=== PATIENT | male | born 1980 | race Caucasian/White ===

== ENCOUNTER 2018-04-16 12:59 | Emergency (ER) | payer SELFPAY ==
[2018-04-16 14:24] LABS: Absolute Lymphocytes (CBC) 2.4 K/uL (0.7-4.9); Absolute Monocytes 0.4 K/uL (0.1-1.3); Absolute Neutrophil 4.9 K/uL (1.8-8.0); Basophils % 0.5 % (0-1.3); Eosinophils % 0.8 % (0-4.4); Hematocrit 45.6 % (39.6-49.0); Lymphocytes % 30.8 % (15.3-44.8); MCH 31.1 pg (27.0-35.0); MCV 90.6 fL (80-100); MPV 8.9 fL (7.6-11.3); Monocytes % 5.7 % (3.3-12.3); RBC Red Blood Cell Count 5.03 M/uL (4.33-5.43)
[2018-04-16 14:41] LABS: ALT/SGPT 23 U/L (12-78); AST/SGOT 33 U/L (15-37); Albumin 3.6 g/dL (3.4-5.0); Alkaline Phosphatase 112 U/L (45-117); Amylase Level 36 U/L (25-115); BUN Blood Urea Nitrogen 8 mg/dL (7-18); Bicarbonate 31 mmol/L (21-32); Bilirubin Direct 0.1 mg/dL (0-0.2); Bilirubin Total 0.4 mg/dL (0.2-1.0); Glucose Level 89 mg/dL (74-106); Lipase 73 U/L (73-393); Potassium 3.8 mmol/L (3.5-5.1); Protein, Total 7.2 g/dL (6.4-8.2); Sodium Level 140 mmol/L (136-145)
--- NOTE | 2018-04-16 16:26 | RAD REPORT ---
EXAM DESCRIPTION: CT - Abdomen Pelvis W Contrast - 04/16/2018 4:10 pm CLINICAL HISTORY: Abdominal pain. Left-sided pain COMPARISON: None. TECHNIQUE: Computed axial tomography of the abdomen and pelvis was obtained. 100 cc Isovue-300 is ad ministered intravenously. Oral contrast was given. All CT scans are performed using dose optimization technique as appropriate and may include automated exposure control or mA/KV adjustment according to patient size. FINDINGS: The liver, spleen, pancreas, adrenals and kidneys appear unremarkable. The appendix is normal caliber. There is no evidence of diverticulitis . The wall of the distal descending and sigmoid colon appears mildly thickened. Small right inguinal hernia is present. A small umbilical hernia is seen. IMPRESSION: Apparent mild thickening of the wall of the distal descending and sigmoid colon may repr esent a mild colitis or be secondary to incomplete distention
[2018-04-16] MEDS ORDERED: METRONIDAZOLE 500mg IVPB 500 MG/100 ML BAG IV ONE (16:54)
--- NOTE | 2018-04-16 17:28 | EDPHYS ---
Physician Documentation [facility] Name: Sanjay Cerda Age: 37 yrs Sex: Male : 1980 Arrival Date: 04/16/2018 Time: 13:01 Bed 23 Private MD: ED Physician Reynaldo Simpson HPI: 04/16 14:00 This 37 yrs old Male presents to ER via Ambulatory with complaints of cp Abdominal Pain. 14:00 The patient presents with abdominal pain in the lower abdomen. Onset: The cp symptoms/episode began/occurred yesterday. Associated signs and symptoms: Pertinent negatives: blood in stools, chest pain, constipation, diarrhea, fever, hematuria, testicular pain, vomiting. Patient reports pain has been intermittent since 2008 and returned yesterday. Historical: - Allergies: 13:03 No Known Allergies; aj - Home Meds: 13:03 None [Active]; aj - PMHx: 13:03 None; aj - PSHx: 13:03 None; aj - Immunization history:: Adult Immunizations unknown. - Social history:: Smoking status: Patient uses tobacco products, smokes one pack cigarettes per day. - Ebola Screening: : Patient negative for fever greater than or equal to 101.5 degrees Fahrenheit, and additional compatible Ebola Virus Disease symptoms Patient denies exposure to infectious person Patient denies travel to an Ebola-affected area in the 21 days before illness onset No symptoms or risks identified at this time. ROS: 14:05 Constitutional: Negative for body aches, chills, fever, poor PO intake. cp 14:05 Eyes: Negative for injury, pain, redness, and discharge. cp 14:05 ENT: Negative for drainage from ear(s), ear pain, sore throat, difficulty swallowing, difficulty handling secretions. 14:05 Cardiovascular: Negative for chest pain, edema, palpitations. 14:05 Respiratory: Negative for cough, shortness of breath, wheezing. 14:05 Abdomen/GI: Positive for abdominal pain, Negative for vomiting, diarrhea, constipation, anorexia, black/tarry stool, rectal bleeding. 14:05 Back: Negative for radiated pain. 14:05 : Negative for urinary symptoms, hematuria, flank pain, testicular pain 14:05 Skin: Negative for cellulitis, rash. 14:05 Neuro: Negative for altered mental status, headache, weakness. 14:05 All other systems are negative. Exam: 14:10 Constitutional: The patient appears in no acute distress, alert, awake, non-toxic, well cp developed, well nourished. 14:10 Head/Face: Normocephalic, atraumatic. cp 14:10 Eyes: Periorbital structures: appear normal, Conjunctiva: normal, no exudate, no injection, Sclera: no appreciated abnormality, Lids and lashes: appear normal, bilaterally. 14:10 ENT: External ear(s): are unremarkable, Nose: is normal, Mouth: is normal, Posterior pharynx: is normal, airway is patent, no erythema, no exudate. 14:10 Neck: ROM/movement: is normal, is supple, without pain, no range of motions limitations, no nuchal rigidity. 14:10 Chest/axilla: Inspection: normal, Palpation: is normal, no crepitus, no tenderness. 14:10 Cardiovascular: Rate: normal, Rhythm: regular. 14:10 Respiratory: the patient does not display signs of respiratory distress, Respirations: normal, no use of accessory muscles, no retractions, no splinting, no tachypnea, labored breathing, is not present, Breath sounds: are clear throughout, no decreased breath sounds, no stridor, no wheezing. 14:10 Abdomen/GI: Inspection: abdomen appears normal, Bowel sounds: active, all quadrants, Palpation: soft, in all quadrants, moderate abdominal tenderness, in the umbilical area and right lower quadrant, rebound tenderness, is not appreciated, involuntary guarding, is not appreciated. 14:10 Back: pain, is absent, ROM is normal. 14:10 Skin: cellulitis, is not appreciated, no rash present. Vital Signs: 13:04 BP 117 / 74; Pulse 70; Resp 14; Temp 97.9; Pulse Ox 98% on R/A; Weight 72.57 kg; Height aj 5 ft. 11 in. (180.34 cm); 14:12 BP 122 / 83; Pulse 58; Resp 17; Pulse Ox 99% on R/A; tw2 14:50 BP 123 / 88; Pulse 60; Resp 17; Pulse Ox 98% on R/A; tw2 15:49 BP 118 / 88; Pulse 60; Resp 17; Pulse Ox 98% on R/A; tw2 16:54 BP 116 / 83; Pulse 59; Resp 17; Pulse Ox 100% on R/A; tw2 17:30 BP 120 / 80; Pulse 72; Resp 17; Pulse Ox 99% on R/A; tw2 17:58 BP 118 / 78; Pulse 77; Resp 19; Pulse Ox 99% on R/A; tw2 13:04 Body Mass Index 22.32 (72.57 kg, 180.34 cm) aj MDM: 13:50 Patient medically screened. cp 14:00 Differential diagnosis: appendicitis, bowel obstruction, diverticulitis, gastritis, GI cp Bleed, Pyelonephritis, Testicular Torsion, Ureterolithiasis, urinary tract infection. 17:26 Data reviewed: vital signs, nurses notes, lab test result(s), radiologic studies, CT cp scan. 17:26 Counseling: I had a detailed discussion with the patient and/or guardian regarding: the cp historical points, exam findings, and any diagnostic results supporting the discharge/admit diagnosis, lab results, radiology results, the need for outpatient follow up, a cold roll catcher, to return to the emergency department if symptoms worsen or persist or if there are any questions or concerns that arise at home. Response to treatment: the patient's symptoms have markedly improved after treatment, and as a result, I will discharge patient. Special discussion: Based on the patient's Hx, exam, and Dx evaluation, there is no indication for emergent surgery or inpatient Tx. It is understood by the patient/guardian that if the Sx's persist or worsen they need to return immediately for re-evaluation. 04/16 13:58 Order name: Amylase, Serum; Complete Time: 16:37 cp 04/16 13:58 Order name: Basic Metabolic Panel; Complete Time: 16:37 cp 04/16 16:37 Interpretation: Reviewed. 04/16 13:58 Order name: CBC with Diff; Complete Time: 16:37 cp 04/16 13:58 Order name: Creatinine for Radiology; Complete Time: 16:37 cp 04/16 13:58 Order name: Hepatic Function; Complete Time: 16:37 cp 04/16 16:37 Interpretation: Normal except: GLOB 3.6; A/G 1.0. cp 04/16 13:58 Order name: Lipase; Complete Time: 16:37 cp 04/16 13:58 Order name: Urine Microscopic Only cp 04/16 13:58 Order name: IV Saline Lock; Complete Time: 14:02 cp 04/16 13:58 Order name: Labs collected and sent; Complete Time: 14:02 cp 04/16 13:58 Order name: Urine Dipstick-Ancillary (obtain specimen); Complete Time: 15:49 cp 04/16 13:58 Order name: CT Abd/Pelvis - W/Contrast: may give oral contrast; Complete Time: 16:37 cp 04/16 15:51 Order name: Urine Dipstick--Ancillary (enter results) eb Administered Medications: 16:52 Drug: metroNIDAZOLE 500 mg Volume: 100 ml; Route: IVPB; Infused Over: 30 mins; Site: rv right antecubital; 17:58 Follow up: Response: No adverse reaction; IV Status: Completed infusion tw2 17:25 Drug: Cipro 500 mg Route: PO; tw2 17:58 Follow up: Response: No adverse reaction tw2 Disposition: 04/16/18 17:27 Discharged to Home. Impression: Colitis. - Condition is Stable. - Discharge Instructions: Colitis. - Prescriptions for Tylenol- Codeine #3 300-30 mg Oral Tablet - take 2 tablets by ORAL route every 6 hours As needed; 20 tablet. Cipro 500 mg Oral Tablet - take 1 tablet by ORAL route every 12 hours for 10 days; 20 tablet. Metronidazole 500 mg Oral Tablet - take 1 tablet by ORAL route every 8 hours; 30 tablet. - Medication Reconciliation Form, Thank You Letter, Antibiotic Education, Prescription Opioid Use, Work release form form. - Follow up: Esvin Xie MD; When: 2 - 3 days; Reason: Recheck today's complaints. - Problem is new. - Symptoms have improved. Addendum: 04/19/2018 07:01 Co-signature as Attending Physician, Reynaldo Simpson MD I agree with the assessment and c peter plan of care. Signatures: Dispatcher [employer] EDFlor Kaufman RN RN aj Anderson, Corey, MD MD cha Page, Corey, PA PA cp Wise, Tara, RN RN tw2 Matt Patricia RN RN rv Corrections: (The following items were deleted from the chart) 04/16 17:59 17:27 04/16/2018 17:27 Discharged to Home. Impression: Colitis. Condition is Stable. tw2 Forms are Work release form, Medication Reconciliation Form, Thank You Letter, Antibiotic Education, Prescription Opioid Use. Follow up: Esvin Xie; When: 2 - 3 days; Reason: Recheck today's complaints. Problem is new. Symptoms have improved. cp
--- NOTE | 2018-04-16 17:28 | ER ---
Nurse's Notes [facility] Name: Sanjay Cerda Age: 37 yrs Sex: Male : 1980 Arrival Date: 04/16/2018 Time: 13:01 Bed 23 Private MD: Diagnosis: Colitis Presentation: 04/16 13:02 Presenting complaint: Patient states: Left side abdominal pain, off and on since 2008. aj This episode started yesterday. Patient also reports nausea. Transition of care: patient was not received from another setting of care. Onset of symptoms was April 15, 2018. Risk Assessment: Do you want to hurt yourself or someone else? Patient reports no desire to harm self or others. Initial Sepsis Screen: Does the patient meet any 2 criteria? No. Patient's initial sepsis screen is negative. Does the patient have a suspected source of infection? No. Patient's initial sepsis screen is negative. Care prior to arrival: None. 13:02 Method Of Arrival: Ambulatory aj 13:02 Acuity: LEIDA 3 aj Triage Assessment: 13:03 General: Appears in no apparent distress. comfortable, Behavior is calm, cooperative, aj appropriate for age. Pain: Complains of pain in left upper quadrant and left lower quadrant Pain currently is 6 out of 10 on a pain scale. Neuro: Level of Consciousness is awake, alert, obeys commands, Oriented to person, place, time, situation, Appropriate for age. Respiratory: Airway is patent Respiratory effort is even, unlabored, Respiratory pattern is regular, symmetrical. GI: Reports lower abdominal pain, upper abdominal pain, nausea. GI: Reports. Derm: Skin is intact, is healthy with good turgor, Skin is pink, warm \T\ dry. normal. Historical: - Allergies: 13:03 No Known Allergies; aj - Home Meds: 13:03 None [Active]; aj - PMHx: 13:03 None; aj - PSHx: 13:03 None; aj - Immunization history:: Adult Immunizations unknown. - Social history:: Smoking status: Patient uses tobacco products, smokes one pack cigarettes per day. - Ebola Screening: : Patient negative for fever greater than or equal to 101.5 degrees Fahrenheit, and additional compatible Ebola Virus Disease symptoms Patient denies exposure to infectious person Patient denies travel to an Ebola-affected area in the 21 days before illness onset No symptoms or risks identified at this time. Screenin:14 Abuse screen: Denies threats or abuse. Nutritional screening: No deficits noted. tw2 Tuberculosis screening: No symptoms or risk factors identified. Fall Risk None identified. Assessment: 14:13 General: Appears in no apparent distress. Behavior is calm, cooperative, appropriate tw2 for age, quiet. Pain: Complains of pain in abdomen. Neuro: Level of Consciousness is awake, alert, obeys commands, Oriented to person, place, time, situation. Cardiovascular: Denies chest pain, shortness of breath, Heart tones S1 S2 Capillary refill < 3 seconds Patient's skin is warm and dry. Respiratory: Airway is patent Respiratory effort is even, unlabored, Respiratory pattern is regular, symmetrical, Breath sounds are clear bilaterally. GI: Abdomen is flat, Bowel sounds present X 4 quads. Abd is soft X 4 quads Reports lower abdominal pain, upper abdominal pain, nausea. : No signs and/or symptoms were reported regarding the genitourinary system. EENT: No signs and/or symptoms were reported regarding the EENT system. Derm: No signs and/or symptoms reported regarding the dermatologic system. Musculoskeletal: Range of motion: intact in all extremities. 14:50 Reassessment: Patient appears in no apparent distress at this time. No changes from tw2 previously documented assessment. Patient and/or family updated on plan of care and expected duration. Pain level reassessed. Patient is alert, oriented x 3, equal unlabored respirations, skin warm/dry/pink. 15:49 Reassessment: Patient appears in no apparent distress at this time. No changes from tw2 previously documented assessment. Patient and/or family updated on plan of care and expected duration. Pain level reassessed. Patient is alert, oriented x 3, equal unlabored respirations, skin warm/dry/pink. 16:55 Reassessment: Patient appears in no apparent distress at this time. No changes from tw2 previously documented assessment. Patient and/or family updated on plan of care and expected duration. Pain level reassessed. Patient is alert, oriented x 3, equal unlabored respirations, skin warm/dry/pink. 17:31 Reassessment: Patient appears in no apparent distress at this time. No changes from tw2 previously documented assessment. Patient and/or family updated on plan of care and expected duration. Pain level reassessed. Patient is alert, oriented x 3, equal unlabored respirations, skin warm/dry/pink. 17:59 Reassessment: Patient appears in no apparent distress at this time. No changes from tw2 previously documented assessment. Patient and/or family updated on plan of care and expected duration. Pain level reassessed. Patient is alert, oriented x 3, equal unlabored respirations, skin warm/dry/pink. Vital Signs: 13:04 BP 117 / 74; Pulse 70; Resp 14; Temp 97.9; Pulse Ox 98% on R/A; Weight 72.57 kg; Height aj 5 ft. 11 in. (180.34 cm); 14:12 BP 122 / 83; Pulse 58; Resp 17; Pulse Ox 99% on R/A; tw2 14:50 BP 123 / 88; Pulse 60; Resp 17; Pulse Ox 98% on R/A; tw2 15:49 BP 118 / 88; Pulse 60; Resp 17; Pulse Ox 98% on R/A; tw2 16:54 BP 116 / 83; Pulse 59; Resp 17; Pulse Ox 100% on R/A; tw2 17:30 BP 120 / 80; Pulse 72; Resp 17; Pulse Ox 99% on R/A; tw2 17:58 BP 118 / 78; Pulse 77; Resp 19; Pulse Ox 99% on R/A; tw2 13:04 Body Mass Index 22.32 (72.57 kg, 180.34 cm) aj ED Course: 13:01 Patient arrived in ED. aj 13:03 Triage completed. aj 13:04 Arm band placed on left wrist. Patient placed in waiting room, Patient notified of wait aj time. 13:45 Bed in low position. Call light in reach. Pulse ox on. NIBP on. tw2 13:50 Reynaldo Vigil PA is PHCP. cp 13:50 Reynaldo Simpson MD is Attending Physician. cp 13:52 Tania Murillo RN is Primary Nurse. tw2 14:03 No provider procedures requiring assistance completed. Inserted saline lock: 20 gauge tw2 in right antecubital area, using aseptic technique. Blood collected. 15:49 Urine Microscopic Only Sent. tw2 16:10 CT Abd/Pelvis - W/Contrast: may give oral contrast In Process Unspecified. EDMS 17:26 Esvin Xie MD is Referral Physician. cp 17:29 Awaiting: completion of IV abx prior to discharge. tw2 17:59 IV discontinued, intact, bleeding controlled, No redness/swelling at site. Pressure tw2 dressing applied. Administered Medications: 16:52 Drug: metroNIDAZOLE 500 mg Volume: 100 ml; Route: IVPB; Infused Over: 30 mins; Site: rv right antecubital; 17:58 Follow up: Response: No adverse reaction; IV Status: Completed infusion tw2 17:25 Drug: Cipro 500 mg Route: PO; tw2 17:58 Follow up: Response: No adverse reaction tw2 Outcome: 17:27 Discharge ordered by MD. cp 17:59 Discharged to home ambulatory. tw2 17:59 Condition: stable 17:59 Discharge instructions given to patient, Instructed on discharge instructions, follow up and referral plans. no drinking with medication, no driving heavy equipment, medication usage, Demonstrated understanding of instructions, follow-up care, medications, Prescriptions given X 3. 17:59 Patient left the ED. tw2 Signatures: Dispatcher [employer] EDFlor Kaufman RN RN Reynaldo Guerra PA PA cp Tania Murillo RN RN tw2 Matt Patricia RN RN rv
[2018-04-16] MEDS ORDERED: CIPROFLOXACIN HCL 500 MG TAB ONE (17:30)
[2018-04-16 17:31] LABS: Urine Blood TRACE (NEG); Urine Glucose NEGATIVE (NEG); Urine Protein NEGATIVE (NEG); Urine Specific Gravity 1.015 (1.005-1.030); Urine pH 7.5 (5.0-7.0)
[2018-04-16 17:59] LABS: Urine Bacteria <20 /HPF (NONE SEEN); Urine RBC <5 /HPF (NONE SEEN)
[2018-04-16 18:00] LABS: Urine Amorphous Sediment TRACE /HPF (NONE SEEN); Urine Culture Reflex Order NOT NEEDED
== END 2018-04-16 17:59 | disposition home or self-care (01) ==
LOC: ER 12:59
DX: K52.9 Noninfective gastroenteritis and colitis, unspecified (principal); F17.210 Nicotine dependence, cigarettes, uncomplicated
CPT/HCPCS: 36415; 74177; 80048; 80076; 81003; 81015; 82150; 83690; 85025; 96365; 99284; Q9967

== ENCOUNTER 2019-02-11 20:56 | Emergency (ER) | payer SELFPAY ==
[2019-02-11] MEDS ORDERED: ONDANSETRON 4 MG/2 ML VIAL ONE (22:11)
[2019-02-11] MEDS ORDERED: MORPHINE 4 MG/ML SYR ONE (22:11)
[2019-02-11] MEDS ORDERED: NA CHLORIDE 0.9% 1,000 ML ONE (22:11)
[2019-02-11] MEDS ORDERED: FAMOTIDINE 20 MG/2 ML VIAL IV ONE (22:11)
[2019-02-11 22:16] LABS: Absolute Lymphocytes (CBC) 2.3 K/uL (0.7-4.9); Basophils % 0.6 % (0-1.3); Hematocrit 49.8 % (39.6-49.0); Lymphocytes % 12.3 % (15.3-44.8); MPV 8.8 fL (7.6-11.3); Monocytes % 7.3 % (3.3-12.3); RBC Red Blood Cell Count 5.57 M/uL (4.33-5.43)
[2019-02-11 22:31] LABS: Albumin 3.5 g/dL (3.4-5.0); Bilirubin Direct 0.2 mg/dL (0-0.2); Bilirubin Total 1.2 mg/dL (0.2-1.0); Potassium 3.9 mmol/L (3.5-5.1); Protein, Total 7.9 g/dL (6.4-8.2)
[2019-02-12 00:01] LABS: Urine Blood 2+ (NEG); Urine Glucose NEGATIVE (NEG); Urine Protein 1+ (NEG)
[2019-02-12 00:02] LABS: Urine Bacteria <20 /HPF (NONE SEEN); Urine Culture Reflex Order NOT NEEDED; Urine Mucus MOD /HPF (NONE SEEN); Urine RBC <5 /HPF (NONE SEEN)
[2019-02-12] MEDS ORDERED: METRONIDAZOLE 500mg IVPB 500 MG/100 ML BAG IV ONE (01:27)
[2019-02-12] MEDS ORDERED: ACETAMINOPHEN 500 MG TAB ONE (01:36)
[2019-02-12] MEDS ORDERED: NA CHLORIDE 0.9% 1,000 ML ONE ×2 (01:38→02:57)
[2019-02-12] MEDS ORDERED: CEFOXITIN/SWI 1gm 1 GM/10 ML SYR ONE (02:05)
[2019-02-12] MEDS ORDERED: FENTANYL CITR 100 MCG/2 ML ONE ×2 (02:17→04:15)
--- NOTE | 2019-02-12 03:22 | ER ---
Nurse's Notes [facility] Name: Sanjay Cerda Age: 38 yrs Sex: Male : 1980 Arrival Date: 02/11/2019 Time: 20:59 Bed 30 Private MD: Diagnosis: Diverticulitis of large intestine with perforation and abscess without bleeding Presentation: 02/11 21:10 Presenting complaint: Significant other states: abdominal pain and vomiting x 2 days. dm5 "feels like I've done a million sit ups" Pt states pain is 12/10. Transition of care: patient was not received from another setting of care. Onset of symptoms was February 09, 2019. Risk Assessment: Do you want to hurt yourself or someone else? Patient reports no desire to harm self or others. Initial Sepsis Screen: Does the patient meet any 2 criteria? No. Patient's initial sepsis screen is negative. Does the patient have a suspected source of infection? No. Patient's initial sepsis screen is negative. Care prior to arrival: None. 21:10 Method Of Arrival: Wheelchair dm5 21:10 Acuity: LEIDA 3 dm5 Triage Assessment: 21:10 General: Appears uncomfortable, Behavior is cooperative, restless. Pain: Complains of dm5 pain in right lower quadrant and left lower quadrant Pain currently is 10 out of 10 on a pain scale. Quality of pain is described as crampy. Neuro: Level of Consciousness is awake, alert, obeys commands, Oriented to person, place, time, situation. Cardiovascular: No deficits noted. Respiratory: No deficits noted. GI: Abdomen is round Reports lower abdominal pain, nausea, vomiting. Derm: Skin is pink, warm \\T\\ dry. Historical: - Allergies: 22:09 No Known Allergies; ca1 - Home Meds: 22:09 None [Active]; ca1 - PMHx: 22:09 None; ca1 - PSHx: 22:09 None; ca1 - Immunization history:: Adult Immunizations not up to date. - Social history:: Smoking status: Patient uses tobacco products, smokes one pack cigarettes per day. - Ebola Screening: : Patient negative for fever greater than or equal to 101.5 degrees Fahrenheit, and additional compatible Ebola Virus Disease symptoms Patient denies exposure to infectious person Patient denies travel to an Ebola-affected area in the 21 days before illness onset No symptoms or risks identified at this time. Screenin:34 Abuse screen: Denies threats or abuse. Denies injuries from another. Nutritional ca1 screening: No deficits noted. Tuberculosis screening: No symptoms or risk factors identified. Fall Risk IV access (20 points). Assessment: 21:34 General: Appears in no apparent distress. uncomfortable, ill, Behavior is calm, ca1 cooperative, appropriate for age. Pain: Complains of pain in abdomen Pain does not radiate. Pain currently is 10 out of 10 on a pain scale. Quality of pain is described as stabbing, Pain began 1 day ago. Is continuous, Aggravated by repositioning. Neuro: Level of Consciousness is awake, alert, obeys commands, Oriented to person, place, time, situation. Cardiovascular: Heart tones S1 S2 present Capillary refill < 3 seconds Patient's skin is warm and dry. Pulses are all present. Edema is absent. Respiratory: Airway is patent Respiratory effort is even, unlabored, Respiratory pattern is regular, symmetrical, Breath sounds are clear bilaterally. GI: Abdomen is flat, non-distended, Bowel sounds present X 4 quads. Abdomen is tender to palpation X 4 quads. Guarding noted X 4 quads. Reports nausea, vomiting, since yesterday. : No deficits noted. No signs and/or symptoms were reported regarding the genitourinary system. EENT: No deficits noted. No signs and/or symptoms were reported regarding the EENT system. Derm: Skin is intact, is healthy with good turgor, Skin is pink, warm \\T\\ dry. Musculoskeletal: Circulation, motion, and sensation intact. Capillary refill < 3 seconds, Range of motion: intact in all extremities. 22:16 Reassessment: Patient appears in no apparent distress at this time. Patient and/or ca1 family updated on plan of care and expected duration. Pain level reassessed. Patient is alert, oriented x 3, equal unlabored respirations, skin warm/dry/pink. Completed Oral contrast. Informed nuclear medicine chief technologist. 23:30 Reassessment: Patient appears in no apparent distress at this time. Patient and/or ca1 family updated on plan of care and expected duration. Pain level reassessed. Patient is alert, oriented x 3, equal unlabored respirations, skin warm/dry/pink. Pending CT with Oral Contrast. 02/12 00:34 Reassessment: Patient appears in no apparent distress at this time. Patient and/or ca1 family updated on plan of care and expected duration. Pain level reassessed. Patient is alert, oriented x 3, equal unlabored respirations, skin warm/dry/pink. Pt back from CT scan. 01:30 General: Appears in no apparent distress. comfortable, Behavior is calm, cooperative, dm5 resting with eye closed.. pt felt warm to the touch when I administered the flagyl. Oral temp 102. Provider notified. New orders received. Blankets removed from patient, pt given a single sheet . Pain: Current management is with Morphine, is pt appears to be in no pain at this time. resting quietly with eye closed. 01:50 Pain: Pain currently is 7 out of 10 on a pain scale. dm5 Vital Signs: 02/11 21:20 BP 144 / 93; Pulse 91; Resp 20; Temp 98.1(O); Pulse Ox 100% ; lt1 21:34 Weight 70.31 kg (R); Height 5 ft. 11 in. (180.34 cm) (R); Pain 10/10; ca1 22:16 BP 112 / 75; Pulse 84; Resp 16 S; Pulse Ox 100% on R/A; ca1 23:30 BP 115 / 72; Pulse 95; Resp 17 S; Pulse Ox 97% on R/A; ca1 02/12 00:35 BP 123 / 86; Pulse 91; Resp 17; Temp 98.9(O); Pulse Ox 100% on R/A; ca1 01:20 Temp 102(O); dm5 01:20 BP 111 / 70; Pulse 92; Resp 18; Pulse Ox 97% on R/A; dm5 02:47 BP 111 / 66; Pulse 89; Resp 17; Temp 99.5(O); Pulse Ox 100% ; Pain 4/10; tl1 02/11 21:34 Body Mass Index 21.62 (70.31 kg, 180.34 cm) ca1 ED Course: 02/11 20:59 Patient arrived in ED. do 21:10 Arm band placed on right wrist. Patient placed in an exam room, on a stretcher. dm5 21:14 Reynaldo Vigil PA is PHCP. cp 21:14 Drew Murdock MD is Attending Physician. cp 21:21 Acob, Stacey, RN is Primary Nurse. ca1 21:22 Triage completed. dm5 21:34 Inserted saline lock: 18 gauge in right antecubital area, using aseptic technique. ca1 Blood collected. 22:11 Patient has correct armband on for positive identification. Placed in gown. Bed in low ca1 position. Call light in reach. Side rails up X 1. Pulse ox on. NIBP on. Warm blanket given. 22:11 No provider procedures requiring assistance completed. ca1 22:18 Oral contrast reported to be complete. eh 02/12 00:27 CT Abd/Pelvis - PO and IV Contrast In Process Unspecified. EDMS 00:[address] moved back from [address]. ca1 01:20 Report received from Stacey Ambrose RN. Noise minimized. Lights dimmed. blanket removed dm5 due to fever, sheet given. 01:27 Report given to NARENDRA Yen. ca1 01:41 Diet: Patient is NPO. dm5 01:45 Adilia Garsia RN is Primary Nurse. dm5 04:06 Patient transferred, IV remains in place. tl1 Administered Medications: 02/11 21:40 Drug: NS 0.9% 1000 ml Route: IV; Rate: 1 bolus; Site: right antecubital; ca1 23:31 Follow up: Urine output 230 ml; Response: No adverse reaction; IV Status: Completed ca1 infusion 21:42 Drug: Zofran 4 mg Route: IVP; Site: right antecubital; ca1 23:33 Follow up: Response: No adverse reaction; Nausea is decreased ca1 21:45 Drug: Pepcid 20 mg Route: IVP; Site: right antecubital; ca1 23:33 Follow up: Response: No adverse reaction; Pain is decreased ca1 21:50 Drug: morphine 4 mg Route: IVP; Site: right antecubital; ca1 23:31 Follow up: Response: No adverse reaction; Pain is decreased ca1 02/12 01:09 Drug: metroNIDAZOLE 500 mg Volume: 100 ml; Route: IVPB; Infused Over: 30 mins; Site: dm5 right antecubital; 01:59 Follow up: IV Status: Completed infusion; IV Intake: 100ml dm5 01:20 Drug: NS 0.9% 1000 ml Route: IV; Rate: 1 bolus; Site: right antecubital; dm5 02:30 Follow up: IV Status: Completed infusion; IV Intake: 1000ml tl1 01:30 Drug: Tylenol 1000 mg Route: PO; dm5 02:48 Follow up: Response: No adverse reaction; Marked relief of symptoms; Temperature is tl1 decreased 01:30 CANCELLED (Duplicate Order): Tylenol 1000 mg PO once dm5 01:30 CANCELLED (Duplicate Order): NS 0.9% 1000 ml IV at 1 bolus Per protocol; 1000 mL bolus dm5 01:50 Drug: Mefoxin 1 grams {Note: given via IV push per pharmacy protocol.} Route: IVPB; dm5 Infused Over: 30 mins; Site: right antecubital; 02:21 Follow up: IV Status: Completed infusion; IV Intake: 10ml dm5 02:05 Drug: fentaNYL (PF) 25 mcg Route: IVP; Site: right antecubital; dm5 02:48 Follow up: Response: No adverse reaction; Marked relief of symptoms; Pain is decreased tl1 02:48 Drug: NS 0.9% 1000 ml Route: IV; Rate: 125 ml/hr; Site: right antecubital; tl1 04:07 Follow up: IV Status: Infusion continued upon transfer tl1 04:05 Drug: fentaNYL (PF) 25 mcg Route: IVP; Infused Over: 2 mins; Site: right antecubital; tl1 04:05 Follow up: Response: No adverse reaction; Medication administered at discharge. tl1 Intake: 01:59 IV: 100ml; Total: 100ml. dm5 02:21 IV: 10ml; Total: 110ml. dm5 02:30 IV: 1000ml; Total: 1110ml. tl1 Output: 02/11 23:31 Urine: 230ml; Total: 230ml. ca1 Outcome: 02/12 03:20 ER care complete, transfer ordered by MD. carrillo 04:06 Transferred by ground EMS to [facility], Transfer form completed. tl1 X-rays sent w/ patient. Note: Report called to Martir Aldridge RN 04:06 Condition: stable 04:06 Instructed on the need for transfer, Demonstrated understanding of instructions, follow-up care. 04:08 Patient left the ED. tl1 Signatures: Dispatcher [employer] Adilia Fulton RN RN dm5 Dwayne Fraire Tonya, RN RN tl1 Reynaldo Vigil PA PA cp Ogletree, Danielle do Acob, Cheryl, RN RN ca1 Chambers, Cait lt1 Corrections: (The following items were deleted from the chart) 02/11 22:11 22:09 70.31 kg Reported; Height 5 ft. 11 in. Reported; BMI: 21.6; Pain 10/10; ca1 ca1 22:13 22:11 Inserted saline lock: 18 gauge in right antecubital area, using aseptic ca1 technique. Blood collected. ca1 02/12 01:27 00:35 BP 123 / 86; Pulse 91bpm; Resp 17bpm; Pulse Ox 100% RA; Temp 98F Oral; ca1 ca1
--- NOTE | 2019-02-12 03:22 | EDPHYS ---
Physician Documentation [facility] Name: Sanjay Cerda Age: 38 yrs Sex: Male : 1980 Arrival Date: 02/11/2019 Time: 20:59 Bed 30 Private MD: ED Physician Drew Murdock HPI: 02/11 21:45 This 38 yrs old Male presents to ER via Wheelchair with complaints of cp Abdominal Pain, Vomiting. 21:45 The patient presents with abdominal pain in the lower abdomen. Onset: The cp symptoms/episode began/occurred 2 day(s) ago. 21:45 The symptoms do not radiate. Associated signs and symptoms: Pertinent positives: nausea cp and vomiting, anorexia, Pertinent negatives: blood in stools, chest pain, constipation, diarrhea, dysuria, testicular pain, vomiting blood. The symptoms are described as constant. Modifying factors: the symptoms are aggravated by movement, pressure. Severity of pain: in the emergency department the pain is actually worse is a 10 / 10. Historical: - Allergies: 22:09 No Known Allergies; ca1 - Home Meds: 22:09 None [Active]; ca1 - PMHx: 22:09 None; ca1 - PSHx: 22:09 None; ca1 - Immunization history:: Adult Immunizations not up to date. - Social history:: Smoking status: Patient uses tobacco products, smokes one pack cigarettes per day. - Ebola Screening: : Patient negative for fever greater than or equal to 101.5 degrees Fahrenheit, and additional compatible Ebola Virus Disease symptoms Patient denies exposure to infectious person Patient denies travel to an Ebola-affected area in the 21 days before illness onset No symptoms or risks identified at this time. ROS: 22:00 Constitutional: Negative for body aches, chills, fever, poor PO intake. cp 22:00 Eyes: Negative for injury, pain, redness, and discharge. cp 22:00 ENT: Negative for drainage from ear(s), ear pain, sore throat, difficulty swallowing, difficulty handling secretions. 22:00 Cardiovascular: Negative for chest pain, edema, palpitations. 22:00 Respiratory: Negative for cough, shortness of breath, wheezing. 22:00 Abdomen/GI: Positive for abdominal pain, nausea and vomiting, anorexia, Negative for diarrhea, constipation, black/tarry stool, rectal pain, rectal bleeding. 22:00 Back: Negative for radiated pain. 22:00 : Negative for urinary symptoms, penile pain, testicular pain 22:00 Skin: Negative for cellulitis, rash. 22:00 Neuro: Negative for altered mental status, headache, weakness. 22:00 All other systems are negative. Exam: 22:05 Constitutional: The patient appears in no acute distress, alert, awake, non-toxic, well cp developed, well nourished, in obvious pain, uncomfortable. 22:05 Head/Face: Normocephalic, atraumatic. cp 22:05 Eyes: Periorbital structures: appear normal, Conjunctiva: normal, no exudate, no injection, Sclera: no appreciated abnormality, Lids and lashes: appear normal, bilaterally. 22:05 ENT: External ear(s): are unremarkable, Nose: is normal, Mouth: Lips: moist, Oral mucosa: pink and intact, moist, Posterior pharynx: is normal, airway is patent, no erythema, no exudate. 22:05 Chest/axilla: Inspection: normal, Palpation: is normal, no crepitus, no tenderness. 22:05 Cardiovascular: Rate: normal, Rhythm: regular, Heart sounds: murmur, not appreciated, rub, not appreciated, gallop, not appreciated, Edema: is not appreciated. 22:05 Respiratory: the patient does not display signs of respiratory distress, Respirations: normal, no use of accessory muscles, no retractions, no splinting, no tachypnea, labored breathing, is not present, Breath sounds: are clear throughout, no decreased breath sounds, no stridor, no wheezing. 22:05 Abdomen/GI: Inspection: distension, that is mild, Bowel sounds: active, all quadrants, Palpation: soft, in all quadrants, severe abdominal tenderness, in the left lower quadrant, rebound tenderness, is not appreciated, voluntary guarding, is elicited in the right lower quadrant and left lower quadrant. 22:05 Back: pain, is absent, ROM is normal. 22:05 Skin: no rash present. 22:05 Neuro: Orientation: to person, place \T\ time. Mentation: is normal, Motor: moves all fours, strength is normal. Vital Signs: 21:20 BP 144 / 93; Pulse 91; Resp 20; Temp 98.1(O); Pulse Ox 100% ; lt1 21:34 Weight 70.31 kg (R); Height 5 ft. 11 in. (180.34 cm) (R); Pain 10/10; ca1 22:16 BP 112 / 75; Pulse 84; Resp 16 S; Pulse Ox 100% on R/A; ca1 23:30 BP 115 / 72; Pulse 95; Resp 17 S; Pulse Ox 97% on R/A; ca1 02/12 00:35 BP 123 / 86; Pulse 91; Resp 17; Temp 98.9(O); Pulse Ox 100% on R/A; ca1 01:20 Temp 102(O); dm5 01:20 BP 111 / 70; Pulse 92; Resp 18; Pulse Ox 97% on R/A; dm5 02:47 BP 111 / 66; Pulse 89; Resp 17; Temp 99.5(O); Pulse Ox 100% ; Pain 4/10; tl1 02/11 21:34 Body Mass Index 21.62 (70.31 kg, 180.34 cm) ca1 MDM: 02/11 21:35 Patient medically screened. cp 22:00 Differential diagnosis: bowel obstruction, diverticulitis, pancreatitis, Testicular cp Torsion, Ureterolithiasis, urinary tract infection. 02/12 00:45 Data reviewed: vital signs, nurses notes, lab test result(s), radiologic studies, CT cp scan, I have discussed the patient's presentation/case with the attending Emergency Department Physician;. 00:45 Response to treatment: the patient's symptoms have markedly improved after treatment. Physician consultation: Simon Ng MD was called at 00:45, was contacted at 00:45, regarding consult, patient's condition, after a discussion of the case, a recommendation for transfer for higher level of care is made, for interventional radiology evaluation. 02/11 21:40 Order name: Basic Metabolic Panel; Complete Time: 23:07 cp 02/11 21:40 Order name: CBC with Diff; Complete Time: 23:07 cp 02/11 23:07 Interpretation: Normal except: WBC 18.8; RBC 5.57; HCT 49.8; MALATHI% 79.8; LYM% 12.3; NEUT cp A 15.0; MNA 1.4. 02/11 21:40 Order name: Creatinine for Radiology; Complete Time: 23:07 cp 02/11 21:40 Order name: Hepatic Function; Complete Time: 23:07 cp 02/11 21:40 Order name: Lipase; Complete Time: 23:07 cp 02/11 21:40 Order name: Urine Microscopic Only; Complete Time: 02:24 cp 02/11 21:40 Order name: CT Abd/Pelvis - PO and IV Contrast cp 02/11 23:43 Order name: Urine Dipstick--Ancillary (enter results); Complete Time: 02:24 mw2 02/12 02:24 Interpretation: Normal except: UKET 1+; UBLD 2+; UPROT 1+. cp 02/11 21:40 Order name: IV Saline Lock; Complete Time: 22:09 cp 02/11 21:40 Order name: Labs collected and sent; Complete Time: 22:09 cp 02/11 21:40 Order name: Urine Dipstick-Ancillary (obtain specimen); Complete Time: 23:42 cp 02/12 01:06 Order name: NPO; Complete Time: 01:28 cp Administered Medications: 02/11 21:40 Drug: NS 0.9% 1000 ml Route: IV; Rate: 1 bolus; Site: right antecubital; ca1 23:31 Follow up: Urine output 230 ml; Response: No adverse reaction; IV Status: Completed ca1 infusion 21:42 Drug: Zofran 4 mg Route: IVP; Site: right antecubital; ca1 23:33 Follow up: Response: No adverse reaction; Nausea is decreased ca1 21:45 Drug: Pepcid 20 mg Route: IVP; Site: right antecubital; ca1 23:33 Follow up: Response: No adverse reaction; Pain is decreased ca1 21:50 Drug: morphine 4 mg Route: IVP; Site: right antecubital; ca1 23:31 Follow up: Response: No adverse reaction; Pain is decreased ca1 02/12 01:09 Drug: metroNIDAZOLE 500 mg Volume: 100 ml; Route: IVPB; Infused Over: 30 mins; Site: dm5 right antecubital; 01:59 Follow up: IV Status: Completed infusion; IV Intake: 100ml dm5 01:20 Drug: NS 0.9% 1000 ml Route: IV; Rate: 1 bolus; Site: right antecubital; dm5 02:30 Follow up: IV Status: Completed infusion; IV Intake: 1000ml tl1 01:30 Drug: Tylenol 1000 mg Route: PO; dm5 02:48 Follow up: Response: No adverse reaction; Marked relief of symptoms; Temperature is tl1 decreased 01:30 CANCELLED (Duplicate Order): Tylenol 1000 mg PO once dm5 01:30 CANCELLED (Duplicate Order): NS 0.9% 1000 ml IV at 1 bolus Per protocol; 1000 mL bolus dm5 01:50 Drug: Mefoxin 1 grams {Note: given via IV push per pharmacy protocol.} Route: IVPB; dm5 Infused Over: 30 mins; Site: right antecubital; 02:21 Follow up: IV Status: Completed infusion; IV Intake: 10ml dm5 02:05 Drug: fentaNYL (PF) 25 mcg Route: IVP; Site: right antecubital; dm5 02:48 Follow up: Response: No adverse reaction; Marked relief of symptoms; Pain is decreased tl1 02:48 Drug: NS 0.9% 1000 ml Route: IV; Rate: 125 ml/hr; Site: right antecubital; tl1 04:07 Follow up: IV Status: Infusion continued upon transfer tl1 04:05 Drug: fentaNYL (PF) 25 mcg Route: IVP; Infused Over: 2 mins; Site: right antecubital; tl1 04:05 Follow up: Response: No adverse reaction; Medication administered at discharge. tl1 Disposition: 02/13 01:31 Co-signature as Attending Physician, Drew Murdock MD. Disposition: 02/12/19 03:20 Transfer ordered to [facility]. Diagnosis is Diverticulitis of large intestine with perforation and abscess without bleeding. - Reason for transfer: Higher level of care. - Accepting physician is DR Gill. - Condition is Stable. - Problem is new. - Symptoms have improved. Signatures: Dispatcher [employer] EDMS Adilia Garsia RN RN dm5 Trudy Andres RN RN tl1 Reynaldo Vigil PA PA cp Starr, Gregory, MD MD Stacey Ambrose RN RN ca1 Corrections: (The following items were deleted from the chart) 02/11 23:07 23:07 Normal except: WBC 18.8; RBC 5.57; HCT 49.8; MALATHI% 79.8; LYM% 12.3; NEUT A 15.0. [facility] 02/12 01:30 01:30 Tylenol 1000 mg PO once ordered. dm5 dm5 01:30 01:30 NS 0.9% 1000 ml IV at 1 bolus Per protocol; 1000 mL bolus ordered. dm5 dm5 04:08 03:20 02/12/2019 03:20 Transfer ordered to [facility]. Diagnosis is tl1 Diverticulitis of large intestine with perforation and abscess without bleeding. Reason for transfer: Higher level of care. Accepting physician is DR Gill. Condition is Stable. Problem is new. Symptoms have improved. cp
--- NOTE | 2019-02-14 13:12 | RAD REPORT ---
EXAM DESCRIPTION: CT ABDOMEN AND PELVIS WITH CONTRAST CLINICAL HISTORY: ABD PAIN COMPARISON: 04/16/2018 TECHNIQUE: CT of the abdomen and pelvis performed following IV administration of iodinated contrast. DLP: 1084.6 mGycm FINDINGS: Lung Bases: The visualized lung bases are clear. Bones: No destructive bone lesions identified. Abdomen: Liver: The liver has normal size and density. No intrahepatic mass or biliary dilatation. Gallbladder: No calcified gallstones. Spleen, Pancreas, and Adrenal Glands: The spleen, pancreas, and adrenal glands are unremarkable. Kidneys: The kidneys have normal size and contour without evidence of solid mass or hydronephrosis. Vasculature: Aortoiliac atherosclerosis. IVC is unremarkable. The portal vein is patent. The proxim al visceral and renal arteries are patent. Stomach: The stomach and duodenum have normal course. Other: No free intraperitoneal air. No free fluid or lymphadenopathy. Pelvis: Bladder: Urinary bladder is unremarkable. Bowel: Scattered diverticula colon. Short segment wall thickening the proximal sigmoid colon with a djacent inflammatory change. There is a well-circumscribed pericolic fluid collection measuring 3.0 x 4.4 cm. Mild dilation of the small bowel without distal decompression likely related to ileus. Appendix: Normal appendix. Pelvis: Prior cholecystectomy. IMPRESSION: 1. Complicated acute diverticulitis of the sigmoid colon. There is a 4.4 cm abscess yaquelin cent to the proximal sigmoid colon. This fluid collection may be amenable to percutaneous drainage. This exam was performed according to our departmental dose-optimization program, which includes autom ated exposure control, adjustment of the mA and/or kV according to patient size and/or use of iterati ve reconstruction technique. Electronically signed by: Lyle Batista 02/12/2019 12:38 AM CDT Due to temporary technical issues with the PACS/Fluency reporting system, reports are being signed by the in house radiologist as a courtesy to ensure prompt reporting. The interpreting radiologist is f bronsonly responsible for the content of the report.
== END 2019-02-12 04:08 | disposition short-term general hospital (02) ==
LOC: ER 20:56
DX: K57.20 Diverticulitis of large intestine with perforation and abscess without bleeding (principal); F17.210 Nicotine dependence, cigarettes, uncomplicated
CPT/HCPCS: 36415; 74177; 80048; 80076; 81003; 81015; 83690; 85025; 96361; 96365; 96375; 99285; J2405; J3010; J7030; Q9967

== ENCOUNTER 2019-02-23 10:34 | Emergency (ER) | payer SELFPAY ==
--- OUTSIDE RECORDS SUMMARY | 2019-02-23 10:38 | XMS REPORT ---
:1980 [facility] Address [address] [place] [address] Care Team Providers Name Role Phone VANESSADAMONELAINA LIU Unavailable Unavailable Problems This patient has no known problems. Allergies, Adverse Reactions, Alerts This patient has no known allergies or adverse reactions. Medications This patient has no known medications. Results Test Description Test Time Test Comments Text Results Atomic Results Result Comments MAGNESIUM 2019-02-15 08:11:00 Test Item Value Reference Range Comments MAGNESIUM (BEAKER) (test xanm=325) 1.8 mg/dL 1.6-2.6 BASIC METABOLIC [id number] 08:11:00 Test Item Value Reference Range Comments SODIUM (BEAKER) (test 143 meq/L 136-145 bgcj=972) POTASSIUM (BEAKER) (test 3.9 meq/L 3.5-5.1 omuy=141) CHLORIDE (BEAKER) (test 108 meq/L 98-107 gyyj=628) CO2 (BEAKER) (test 27 meq/L 22-29 faur=344) BLOOD UREA NITROGEN 7 mg/dL 7-21 (BEAKER) (test kdaw=952) CREATININE (BEAKER) (test 0.75 mg/dL 0.57-1.25 umtb=612) GLUCOSE RANDOM (BEAKER) 80 mg/dL 70-105 (test buhr=269) CALCIUM (BEAKER) (test 8.8 mg/dL 8.4-10.2 cove=612) EGFR (BEAKER) (test 115 mL/min/1.73 sq m ESTIMATED GFR IS NOT uijj=7684) ACCURATE CREATININE CLEARANCE IN PREDICTING GLOMERULAR FILTRATION RATE. ESTIMATED GFR IS NOT APPLICABLE FOR DIALYSIS PATIENTS. CBC W/PLT COUNT & AUTO [id number] 06:40:00 Test Item Value Reference Range Comments WHITE BLOOD CELL COUNT (BEAKER) (test xlhe=943) 6.3 K/ L 3.5-10.5 RED BLOOD CELL COUNT (BEAKER) (test osed=932) 4.53 M/ L 4.63-6.08 HEMOGLOBIN (BEAKER) (test gkaa=736) 13.1 GM/DL 13.7-17.5 HEMATOCRIT (BEAKER) (test rrsv=040) 40.1 % 40.1-51.0 MEAN CORPUSCULAR VOLUME (BEAKER) (test opxc=938) 88.5 fL 79.0-92.2 MEAN CORPUSCULAR HEMOGLOBIN (BEAKER) (test 28.9 pg 25.7-32.2 dkjx=213) MEAN CORPUSCULAR HEMOGLOBIN CONC (BEAKER) (test 32.7 GM/DL 32.3-36.5 eztz=953) RED CELL DISTRIBUTION WIDTH (BEAKER) (test 13.0 % 11.6-14.4 xonu=988) PLATELET COUNT (BEAKER) (test rldi=672) 288 K/CU MM 150-450 MEAN PLATELET VOLUME (BEAKER) (test zrtn=044) 9.9 fL 9.4-12.4 NUCLEATED RED BLOOD CELLS (BEAKER) (test 0 /100 WBC 0-0 uwch=220) NEUTROPHILS RELATIVE PERCENT (BEAKER) (test 55 % dveq=914) LYMPHOCYTES RELATIVE PERCENT (BEAKER) (test 29 % xngw=724) MONOCYTES RELATIVE PERCENT (BEAKER) (test 12 % kqkd=385) EOSINOPHILS RELATIVE PERCENT (BEAKER) (test 3 % wyne=836) BASOPHILS RELATIVE PERCENT (BEAKER) (test 1 % mjjn=539) NEUTROPHILS ABSOLUTE COUNT (BEAKER) (test 3.42 K/ L 1.78-5.38 exwp=633) LYMPHOCYTES ABSOLUTE COUNT (BEAKER) (test 1.83 K/ L 1.32-3.57 tiax=179) MONOCYTES ABSOLUTE COUNT (BEAKER) (test 0.76 K/ L 0.30-0.82 aqkf=124) EOSINOPHILS ABSOLUTE COUNT (BEAKER) (test 0.19 K/ L 0.04-0.54 alts=408) BASOPHILS ABSOLUTE COUNT (BEAKER) (test 0.03 K/ L 0.01-0.08 ijwd=541) IMMATURE GRANULOCYTES-RELATIVE PERCENT (BEAKER) 1 % 0-1 (test nyky=1351) [id number] 06:55:00 Test Item Value Reference Range Comments MAGNESIUM (BEAKER) (test nanm=182) 1.8 mg/dL 1.6-2.6 BASIC METABOLIC [id number] 06:55:00 Test Item Value Reference Range Comments SODIUM (BEAKER) (test 136 meq/L 136-145 ddtp=752) POTASSIUM (BEAKER) (test 3.3 meq/L 3.5-5.1 wmdq=754) CHLORIDE (BEAKER) (test 103 meq/L 98-107 lucn=007) CO2 (BEAKER) (test 22 meq/L 22-29 dsyc=881) BLOOD UREA NITROGEN 9 mg/dL 7-21 (BEAKER) (test lypn=550) CREATININE (BEAKER) (test 0.70 mg/dL 0.57-1.25 zspn=448) GLUCOSE RANDOM (BEAKER) 67 mg/dL 70-105 (test mjdq=731) CALCIUM (BEAKER) (test 8.5 mg/dL 8.4-10.2 nhim=820) EGFR (BEAKER) (test 125 mL/min/1.73 sq m ESTIMATED GFR IS NOT mxxv=1544) ACCURATE CREATININE CLEARANCE IN PREDICTING GLOMERULAR FILTRATION RATE. ESTIMATED GFR IS NOT APPLICABLE FOR DIALYSIS PATIENTS. CBC W/PLT COUNT & AUTO [id number] 05:44:00 Test Item Value Reference Range Comments WHITE BLOOD CELL COUNT (BEAKER) (test kodi=491) 8.7 K/ L 3.5-10.5 RED BLOOD CELL COUNT (BEAKER) (test sdcy=844) 4.40 M/ L 4.63-6.08 HEMOGLOBIN (BEAKER) (test zswl=460) 13.0 GM/DL 13.7-17.5 HEMATOCRIT (BEAKER) (test zpav=328) 39.4 % 40.1-51.0 MEAN CORPUSCULAR VOLUME (BEAKER) (test zqyr=210) 89.5 fL 79.0-92.2 MEAN CORPUSCULAR HEMOGLOBIN (BEAKER) (test 29.5 pg 25.7-32.2 waeq=753) MEAN CORPUSCULAR HEMOGLOBIN CONC (BEAKER) (test 33.0 GM/DL 32.3-36.5 bvny=502) RED CELL DISTRIBUTION WIDTH (BEAKER) (test 12.8 % 11.6-14.4 ngjs=811) PLATELET COUNT (BEAKER) (test kjjh=095) 254 K/CU MM 150-450 MEAN PLATELET VOLUME (BEAKER) (test eini=500) 9.9 fL 9.4-12.4 NUCLEATED RED BLOOD CELLS (BEAKER) (test 0 /100 WBC 0-0 uuji=552) NEUTROPHILS RELATIVE PERCENT (BEAKER) (test 71 % xtlj=209) LYMPHOCYTES RELATIVE PERCENT (BEAKER) (test 17 % hldt=346) MONOCYTES RELATIVE PERCENT (BEAKER) (test 9 % wneu=913) EOSINOPHILS RELATIVE PERCENT (BEAKER) (test 1 % omlf=326) BASOPHILS RELATIVE PERCENT (BEAKER) (test 1 % ltxa=585) NEUTROPHILS ABSOLUTE COUNT (BEAKER) (test 6.22 K/ L 1.78-5.38 hhts=967) LYMPHOCYTES ABSOLUTE COUNT (BEAKER) (test 1.49 K/ L 1.32-3.57 mvln=237) MONOCYTES ABSOLUTE COUNT (BEAKER) (test 0.80 K/ L 0.30-0.82 pkni=552) EOSINOPHILS ABSOLUTE COUNT (BEAKER) (test 0.11 K/ L 0.04-0.54 oneg=648) BASOPHILS ABSOLUTE COUNT (BEAKER) (test 0.04 K/ L 0.01-0.08 qdix=966) IMMATURE GRANULOCYTES-RELATIVE PERCENT (BEAKER) 1 % 0-1 (test smui=3879) [id number] 07:28:00 Test Item Value Reference Range Comments MAGNESIUM (BEAKER) (test wueg=503) 1.7 mg/dL 1.6-2.6 BASIC METABOLIC [id number] 07:28:00 Test Item Value Reference Range Comments SODIUM (BEAKER) (test 137 meq/L 136-145 jptv=994) POTASSIUM (BEAKER) (test 3.9 meq/L 3.5-5.1 lsnw=642) CHLORIDE (BEAKER) (test 102 meq/L 98-107 rffl=200) CO2 (BEAKER) (test 26 meq/L 22-29 kfaj=753) BLOOD UREA NITROGEN 7 mg/dL 7-21 (BEAKER) (test levy=389) CREATININE (BEAKER) (test 0.78 mg/dL 0.57-1.25 bbvb=770) GLUCOSE RANDOM (BEAKER) 71 mg/dL 70-105 (test xwaz=868) CALCIUM (BEAKER) (test 9.1 mg/dL 8.4-10.2 zfmg=880) EGFR (BEAKER) (test 110 mL/min/1.73 sq m ESTIMATED GFR IS NOT qcqj=4541) ACCURATE CREATININE CLEARANCE IN PREDICTING GLOMERULAR FILTRATION RATE. ESTIMATED GFR IS NOT APPLICABLE FOR DIALYSIS PATIENTS. CBC W/PLT COUNT & AUTO [id number] 07:04:00 Test Item Value Reference Range Comments WHITE BLOOD CELL COUNT (BEAKER) (test srgb=049) 16.1 K/ L 3.5-10.5 RED BLOOD CELL COUNT (BEAKER) (test yudn=405) 4.80 M/ L 4.63-6.08 HEMOGLOBIN (BEAKER) (test hifi=118) 14.2 GM/DL 13.7-17.5 HEMATOCRIT (BEAKER) (test vhvr=497) 43.6 % 40.1-51.0 MEAN CORPUSCULAR VOLUME (BEAKER) (test zzqh=997) 90.8 fL 79.0-92.2 MEAN CORPUSCULAR HEMOGLOBIN (BEAKER) (test 29.6 pg 25.7-32.2 rvzj=330) MEAN CORPUSCULAR HEMOGLOBIN CONC (BEAKER) (test 32.6 GM/DL 32.3-36.5 qjqq=561) RED CELL DISTRIBUTION WIDTH (BEAKER) (test 13.1 % 11.6-14.4 gqbb=511) PLATELET COUNT (BEAKER) (test vyjf=073) 244 K/CU MM 150-450 MEAN PLATELET VOLUME (BEAKER) (test bbmo=752) 10.3 fL 9.4-12.4 NUCLEATED RED BLOOD CELLS (BEAKER) (test 0 /100 WBC 0-0 amvb=048) NEUTROPHILS RELATIVE PERCENT (BEAKER) (test 81 % lefn=024) LYMPHOCYTES RELATIVE PERCENT (BEAKER) (test 11 % jizp=651) MONOCYTES RELATIVE PERCENT (BEAKER) (test 7 % kksz=783) EOSINOPHILS RELATIVE PERCENT (BEAKER) (test 0 % zqmg=217) BASOPHILS RELATIVE PERCENT (BEAKER) (test 0 % nhqt=676) NEUTROPHILS ABSOLUTE COUNT (BEAKER) (test 13.06 K/ L 1.78-5.38 opep=983) LYMPHOCYTES ABSOLUTE COUNT (BEAKER) (test 1.74 K/ L 1.32-3.57 qsjl=273) MONOCYTES ABSOLUTE COUNT (BEAKER) (test 1.20 K/ L 0.30-0.82 qulx=114) EOSINOPHILS ABSOLUTE COUNT (BEAKER) (test 0.03 K/ L 0.04-0.54 yssz=199) BASOPHILS ABSOLUTE COUNT (BEAKER) (test 0.04 K/ L 0.01-0.08 hcmi=634) IMMATURE GRANULOCYTES-RELATIVE PERCENT (BEAKER) 0 % 0-1 (test pdfq=4513) CT, DRAINAGE, [id number] 16:25:00Reason for exam:->perisigmoidal abscess in patient with diverticulitisFINAL REPORT CT- guided drainage catheter placement dated 02/12/2019 Name of practitioner performing procedure:Mickey Herrera M.D. Names of visitor services information assistant:None Procedure: Drainage catheter placement into the left lower quadrant abdominal abscess Preprocedure diagnosis:Abdominal abscess Postprocedure diagnosis:Abdominal abscess Specimens removed:3 cc of purulent fluid removed. An 8 Ukrainian drainage catheter placed. Estimated blood loss:None Complication:None Conscious sedation : 1 mg Versed and [address] Mickey Herrera was responsible for the moderate sedation. Total sedation time:20 minutes Anesthesia: 1% Xylocaine local anesthesia. Graft/Implants:None Technique: This exam was performed according to our departmental dose-optimization program, which includes automated exposure control, adjustment of the mA and/or kV according to patient size and/or use of interactive reconstruction technique. After obtained informed consent, CT-guided drainage catheter placement into the left lower quadrant abdominal abscess was performed under usual sterile technique. After placing introducer needle and guidewire, the tract was dilated with a 6 and 8 Ukrainian dilators. An 8 Ukrainian drainage catheter was placed. The drainage catheter was left in place, secured to skin with suture, and connected to bulb suction. Patient tolerated procedure well. Impression: Successful CT-guided drainage catheter placement into the left lower abdominal abscess. Signed: Mickey Herrera MDReport Verified Date/Time:02/12/2019 16:25:23 Reading Location: [address] Body Reading Room CT, [id number] 14:59:00FINAL REPORT ABDOMINAL AND PELVIS CT DATED 02/12/2019 CLINICAL INFORMATION: Abd pain, fever, abscess suspected TECHNIQUE: Axial images of the abdomen and pelvis were obtained from diaphragm to the pubic symphysis with GI contrast. This exam was performed according to our departmental dose-optimization program , which includes automated exposure control, adjustment of the mA and/or kV according to patient size and/or use of interactive reconstruction technique. COMMENT: Liverand spleen are normal in size without focal abnormality. Gallbladder is distended with vicarious excretion. No biliary dilatation is noted. Pancreas and adrenals are unremarkable. Both kidneys are normal in size. No hydronephrosis, hydroureter, urolithiasis is seen. Wall thickening is seen in the segment of the small bowel in the left lower quadrant abdomen. Wall thickening is also noted in the distal descending and proximal sigmoid colon. Inflammatory changes are seen in the distal descending mesocolon and adjacent to a segment of the small bowel. A 2.8 x 4.2 cm air-fluid collection is seen inthe left mid abdomen. Prostate is normal in size. The urinary bladder is contracted. No mass, adenopathy or ascites is present. IMPRESSION: 1. Wall thickening in a segment of the small bowel in the left lower quadrant abdomen and in the distal descending and proximal sigmoid mesocolon.2. Extraluminalair- fluid collection in the left lower quadrant abdomen suggestive of abscess. Signed: Mickey Herrera MDReport Verified Date/Time: 02/12/2019 14:59:46 Reading Location: [facility] [id number] CT Body Reading Room [facility] METABOLIC [id number] 07:13:00 Test Item Value Reference Range Comments SODIUM (BEAKER) (test 137 meq/L 136-145 gccw=237) POTASSIUM (BEAKER) (test 4.2 meq/L 3.5-5.1 lsrv=412) CHLORIDE (BEAKER) (test 105 meq/L 98-107 magk=294) CO2 (BEAKER) (test 27 meq/L 22-29 oniy=498) BLOOD UREA NITROGEN 7 mg/dL 7-21 (BEAKER) (test yvmj=275) CREATININE (BEAKER) (test 0.94 mg/dL 0.57-1.25 uvxn=141) GLUCOSE RANDOM (BEAKER) 90 mg/dL 70-105 (test odqh=645) CALCIUM (BEAKER) (test 8.7 mg/dL 8.4-10.2 qfkq=643) EGFR (BEAKER) (test 89 mL/min/1.73 sq m ESTIMATED GFR IS NOT oslu=7786) ACCURATE CREATININE CLEARANCE IN PREDICTING GLOMERULAR FILTRATION RATE. ESTIMATED GFR IS NOT APPLICABLE FOR DIALYSIS PATIENTS. CBC W/PLT COUNT & AUTO [id number] 07:08:00 Test Item Value Reference Range Comments WHITE BLOOD CELL COUNT (BEAKER) (test yxrl=128) 19.0 K/ L 3.5-10.5 RED BLOOD CELL COUNT (BEAKER) (test tazz=157) 4.92 M/ L 4.63-6.08 HEMOGLOBIN (BEAKER) (test jalp=820) 14.4 GM/DL 13.7-17.5 HEMATOCRIT (BEAKER) (test ebzm=582) 44.6 % 40.1-51.0 MEAN CORPUSCULAR VOLUME (BEAKER) (test hfbk=512) 90.7 fL 79.0-92.2 MEAN CORPUSCULAR HEMOGLOBIN (BEAKER) (test 29.3 pg 25.7-32.2 glap=227) MEAN CORPUSCULAR HEMOGLOBIN CONC (BEAKER) (test 32.3 GM/DL 32.3-36.5 mvge=696) RED CELL DISTRIBUTION WIDTH (BEAKER) (test 13.1 % 11.6-14.4 ozxe=789) PLATELET COUNT (BEAKER) (test umpu=765) 234 K/CU MM 150-450 MEAN PLATELET VOLUME (BEAKER) (test wsjg=099) 9.5 fL 9.4-12.4 NUCLEATED RED BLOOD CELLS (BEAKER) (test 0 /100 WBC 0-0 ftzb=210) NEUTROPHILS RELATIVE PERCENT (BEAKER) (test 80 % mhxd=786) LYMPHOCYTES RELATIVE PERCENT (BEAKER) (test 11 % yacq=576) MONOCYTES RELATIVE PERCENT (BEAKER) (test 8 % hgsk=961) EOSINOPHILS RELATIVE PERCENT (BEAKER) (test 0 % nsax=307) BASOPHILS RELATIVE PERCENT (BEAKER) (test 0 % ptdd=134) NEUTROPHILS ABSOLUTE COUNT (BEAKER) (test 15.13 K/ L 1.78-5.38 imoe=836) LYMPHOCYTES ABSOLUTE COUNT (BEAKER) (test 2.16 K/ L 1.32-3.57 asxm=599) MONOCYTES ABSOLUTE COUNT (BEAKER) (test 1.48 K/ L 0.30-0.82 frzc=517) EOSINOPHILS ABSOLUTE COUNT (BEAKER) (test 0.01 K/ L 0.04-0.54 wgvt=644) BASOPHILS ABSOLUTE COUNT (BEAKER) (test 0.05 K/ L 0.01-0.08 jdxn=730) IMMATURE GRANULOCYTES-RELATIVE PERCENT (BEAKER) 1 % 0-1 (test mncq=3200) PROTHROMBIN [id number] 06:54:00 Test Item Value Reference Range Comments PROTIME (BEAKER) (test hfnj=105) 16.0 seconds 11.9-14.2 INR (BEAKER) (test uncs=485) 1.3 <=5.9 Effective 12/29/2018: PT Reference Range ChangeNew: 11.9-14.2 Previous: 11.7- 14.7RECOMMENDED COUMADIN/WARFARIN INR THERAPY RANGESSTANDARD DOSE: 2.0-3.0 Includes: PROPHYLAXIS for venous thrombosis, systemic embolization; TREATMENT for venous thrombosis and/or pulmonary embolus.HIGH RISK: Target INR is2.5-3.5 for patients wiht mechanical heart valves.
--- OUTSIDE RECORDS SUMMARY | 2019-02-23 10:38 | XMS REPORT | Clinical Summary ---
:1980 Author Organization [facility] Address [address] [place] [address] Care Team Providers Name Role Phone Unavailable Primary Care Provider Unavailable Allergies No Known Allergies Medications Medication Sig Dispensed Refills Start Date End Date Status amoxicillin-clavulan Take 1 tablet 22 tablet 0 02/15/2019 02/26/2019 Active ate (AUGMENTIN) by mouth 875-125 mg per every 12 tablet (twelve) hours for 11 days. metroNIDAZOLE Take 1 tablet 33 tablet 0 02/15/2019 02/26/2019 Active (FLAGYL) 500 MG (500 mg tablet total) by mouth 3 (three) times daily for 11 days. amoxicillin-clavulan Take 1 tablet 22 tablet 0 02/15/2019 02/15/2019 Discontinued ate (AUGMENTIN) by mouth 875-125 mg per every 12 tablet (twelve) hours for 11 days. metroNIDAZOLE Take 1 tablet 33 tablet 0 02/15/2019 02/15/2019 Discontinued (FLAGYL) 500 MG (500 mg tablet total) by mouth 3 (three) times daily for 11 days. Active Problems Problem Noted Date Abscess of abdominal cavity 02/14/2019 Diverticulitis 02/12/2019 Encounters Date Type Specialty Care Team Description 02/12/2019 - Hospital General Internal Lyle Gill Diverticulitis; 02/15/2019 Encounter Hanh Gusman MD Diverticulitis of large intestine with abscess without bleeding Essie Wadsworth MD Nalam, Belgica Naqvi MD 02/12/2019 Travel after 02/22/2018 Social History Tobacco Use Types Packs/Day Years Used Date Never Assessed Sex Assigned at Date Recorded Not on file Job Start Date Occupation Industry Not on file Not on file Not on file Travel History Travel Start Travel End No recent travel history available. Last Filed Vital Signs Vital Sign Reading Time Taken Blood Pressure 107/70 02/15/2019 8:00 AM CDT Pulse 66 02/15/2019 8:00 AM CDT Temperature 36.2 C (97.2 F) 02/15/2019 8:00 AM CDT Respiratory Rate 18 02/15/2019 8:00 AM CDT Oxygen Saturation 97% 02/15/2019 8:00 AM CDT Inhaled Oxygen Concentration - - Weight 70 kg (154 lb 6.4 oz) 02/12/2019 5:25 AM CDT Height 180.3 cm (5' 11") 02/12/2019 5:25 AM CDT Body Mass Index 21.53 02/12/2019 5:25 AM CDT Plan of Treatment Not on file Procedures Procedure Name Priority Date/Time Associated Comments Diagnosis CBC W/PLT COUNT & Routine 02/15/2019 6:16 Results for this AUTO DIFFERENTIAL AM CDT procedure are in the results section. CBC W/PLT COUNT & Routine 02/15/2019 6:16 Results for this AUTO DIFFERENTIAL AM CDT procedure are in the results section. MAGNESIUM Routine 02/15/2019 5:46 Results for this AM CDT procedure are in the results section. BASIC METABOLIC PANEL Routine 02/15/2019 5:46 Results for this (7) AM CDT procedure are in the results section. CBC W/PLT COUNT & Routine 02/14/2019 4:52 Results for this AUTO DIFFERENTIAL AM CDT procedure are in the results section. MAGNESIUM Routine 02/14/2019 4:52 Results for this AM CDT procedure are in the results section. BASIC METABOLIC PANEL Routine 02/14/2019 4:52 Results for this (7) AM CDT procedure are in the results section. CBC W/PLT COUNT & Routine 02/14/2019 4:52 Results for this AUTO DIFFERENTIAL AM CDT procedure are in the results section. CBC W/PLT COUNT & Routine 02/13/2019 4:54 Results for this AUTO DIFFERENTIAL AM CDT procedure are in the results section. MAGNESIUM Routine 02/13/2019 4:54 Results for this AM CDT procedure are in the results section. BASIC METABOLIC PANEL Routine 02/13/2019 4:54 Results for this (7) AM CDT procedure are in the results section. CBC W/PLT COUNT & Routine 02/13/2019 4:54 Results for this AUTO DIFFERENTIAL AM CDT procedure are in the results section. CT DRAINAGE PELVIS TJ 02/12/2019 4:00 Results for this PM CDT procedure are in the results section. CT ABDOMEN/PELVIS STAT 02/12/2019 1:53 Results for this WITHOUT IV CONTRAST PM CDT procedure are in the results section. CBC W/PLT COUNT & Routine 02/12/2019 6:17 Results for this AUTO DIFFERENTIAL AM CDT procedure are in the results section. PROTHROMBIN TIME/INR Routine 02/12/2019 6:17 Results for this AM CDT procedure are in the results section. CBC W/PLT COUNT & Routine 02/12/2019 6:17 Results for this AUTO DIFFERENTIAL AM CDT procedure are in the results section. BASIC METABOLIC PANEL Routine 02/12/2019 6:17 Results for this (7) AM CDT procedure are in the results section. after 02/22/2018 Results CBC with platelet count + automated diff (02/15/2019 6:16 AM CDT)Only the most recent of4 resultswithin the time period is included. WBC 6.3 3.5 - 10.5 K/L [facility] RBC 4.53 (L) 4.63 - 6.08 M/L [facility] Hemoglobin 13.1 (L) 13.7 - 17.5 GM/DL [facility] Hematocrit 40.1 40.1 - 51.0 % [facility] MCV 88.5 79.0 - 92.2 fL [facility] MCH 28.9 25.7 - 32.2 pg [facility] MCHC 32.7 32.3 - 36.5 GM/DL [facility] RDW 13.0 11.6 - 14.4 % [facility] Platelets 288 150 - 450 K/CU MM [facility] MPV 9.9 9.4 - 12.4 fL [facility] nRBC 0 0 - 0 /100 WBC [facility] % Neutros 55 % [facility] % Lymphs 29 % [facility] % Monos 12 % [facility] % Eos 3 % [facility] % Baso 1 % [facility] # Neutros 3.42 1.78 - 5.38 K/L [facility] # Lymphs 1.83 1.32 - 3.57 K/L [facility] # Monos 0.76 0.30 - 0.82 K/L [facility] # Eos 0.19 0.04 - 0.54 K/L [facility] # Baso 0.03 0.01 - 0.08 K/L [facility] Immature Granulocytes-Relative 1 0 - 1 % [facility] Specimen Blood Performing Organization Address City/State/Zipcode Phone Number [address] [address] [phone] CENTER Magnesium (02/15/2019 5:46 AM CDT)Only the most recent of3 resultswithin the time period is included. Magnesium 1.8 1.6 - 2.6 mg/dL [facility] Specimen Blood Performing Organization Address City/State/Zipcode Phone Number [address] [address] [place] Basic Metabolic Panel (02/15/2019 5:46 AM CDT)Only the most recent of4 resultswithin the time period is included. Sodium 143 136 - 145 meq/L [facility] Potassium 3.9 3.5 - 5.1 meq/L [facility] Chloride 108 (H) 98 - 107 meq/L [facility] CO2 27 22 - 29 meq/L [facility] BUN 7 7 - 21 mg/dL [facility] Creatinine 0.75 0.57 - 1.25 mg/dL [facility] Glucose 80 70 - 105 mg/dL [facility] Calcium 8.8 8.4 - 10.2 mg/dL [facility] EGFR 115Comment: ESTIMATED GFR IS mL/min/1.73 sq m [facility] NOT ACCURATE [facility] CLEARANCE IN PREDICTING GLOMERULAR FILTRATION RATE. ESTIMATED GFR IS NOT APPLICABLE FOR DIALYSIS PATIENTS. Specimen Blood Performing Organization Address City/State/Zipcode Phone Number [facility] [address] [place] [address] drainage pelvis (02/12/2019 4:00 PM CDT) Specimen Narrative Performed At FINAL REPORT [facility] CT-guided drainage catheter placement dated 02/12/2019 Name of practitioner performing procedure: Mickey Herrera M.D. Names of client services assistant: None Procedure: Drainage catheter placement into the left lower quadrant abdominal abscess Preprocedure diagnosis: Abdominal abscess Postprocedure diagnosis: Abdominal abscess Specimens removed: 3 cc of purulent fluid removed. An 8 Scottish drainage catheter placed. Estimated blood loss: None Complication: None Conscious sedation: 1 mg Versed and [address] Mickey Herrera was responsible for the moderate sedation. Total sedation time: 20 minutes Anesthesia: 1% Xylocaine local anesthesia. Graft/Implants: None Technique: This exam was performed according to [...] was dilated with a 6 and 8 Scottish dilators. An 8 Scottish drainage catheter was placed. The drainage catheter was left in place, secured to skin with suture, and connected to bulb suction. Patient tolerated procedure well. Impression: Successful CT-guided drainage catheter placement into the left lower abdominal abscess. Signed: Mickey Herrera MD Report Verified Date/Time:02/12/2019 16:25:23 Reading Location: [facility] B1 C013Y CT Body Reading Room Procedure Note Interface, External Ris In - 02/12/2019 4:27 PM CDT FINAL REPORT CT-guided drainage catheter placement dated 02/12/2019 Name of practitioner performing procedure: Mickey Herrera M.D. Names of client services assistant: None Procedure: Drainage catheter placement into the left lower quadrant abdominal abscess Preprocedure diagnosis: Abdominal abscess Postprocedure diagnosis: Abdominal abscess Specimens removed: 3 cc of purulent fluid removed. An 8 Scottish drainage catheter placed. Estimated blood loss: None Complication: None Conscious sedation: 1 mg Versed and [address] Mickey Herrera was responsible for the moderate sedation. Total sedation time: 20 minutes Anesthesia: 1% Xylocaine local anesthesia. Graft/Implants: None Technique: This exam was performed according to [...] was dilated with a 6 and 8 Scottish dilators. An 8 Scottish drainage catheter was placed. The drainage catheter was left in place, secured to skin with suture, and connected to bulb suction. Patient tolerated procedure well. Impression: Successful CT-guided drainage catheter placement into the left lower abdominal abscess. Signed: Mickey Herrera MD Report Verified Date/Time: 02/12/2019 16:25:23 Reading Location: [facility] B1 C013Y CT Body Reading Room Performing Organization Address City/State/Zipcode Phone Number [facility] CT abdomen/pelvis without iv contrast (02/12/2019 1:53 PM CDT) Specimen Narrative Performed At FINAL REPORT [facility] ABDOMINAL AND PELVIS CT DATED 02/12/2019 CLINICAL INFORMATION:Abd pain, fever, abscess suspected TECHNIQUE:Axial images of the abdomen and pelvis were obtained from diaphragm to the pubic symphysis with GI contrast. This exam was performed according to our departmental dose-optimization program, which includes automated exposure control, adjustment of the mA and/or kV according to patient size and/or use of interactive reconstruction technique. COMMENT: Liver and spleen are normal in size without focal abnormality.Gallbladder is distended with vicarious excretion. No biliary [...] x 4.2 cm air-fluid collection is seen in the left mid abdomen. Prostate is normal in size. The urinary bladder is contracted. No mass, adenopathy or ascites is present. IMPRESSION: 1. Wall thickening in a segment of the small bowel in the left lower quadrant abdomen and in the distal descending and proximal sigmoid mesocolon. 2. Extraluminal air-fluid collection in the left lower quadrant abdomen suggestive of abscess. Signed: Mickey Herrera MD Report Verified Date/Time:02/12/2019 14:59:46 Reading Location: [facility] C013Y CT Body Reading Room Procedure Note Interface, External Ris In - 02/12/2019 3:02 PM CDT FINAL REPORT ABDOMINAL AND PELVIS CT DATED 02/12/2019 [...] and/or use of interactive reconstruction technique. COMMENT: Liver and spleen are normal in size without focal [...] x 4.2 cm air-fluid collection is seen in the left mid abdomen. Prostate is normal in size. The urinary bladder is contracted. No mass, adenopathy or ascites is present. IMPRESSION: 1. Wall thickening in a segment of the small bowel in the left lower quadrant abdomen and in the distal descending and proximal sigmoid mesocolon. 2. Extraluminal air-fluid collection in the left lower quadrant abdomen suggestive of abscess. Signed: Mickey Herrera MD Report Verified Date/Time: 02/12/2019 14:59:46 Reading Location: [facility] B1 C013Y CT Body Reading Room Performing Organization Address City/State/Zipcode Phone Number GE RIS Prothrombin time/INR (02/12/2019 6:17 AM CDT) Protime 16.0 (H) 11.9 - 14.2 seconds [facility] INR 1.3 <=5.9 [facility] Specimen Blood Narrative Performed At Effective 12/29/2018: PT Reference Range [facility] Change New: 11.9-14.2Previous: 11.7-14.7 RECOMMENDED COUMADIN/WARFARIN INR THERAPY RANGES STANDARD DOSE: 2.0-3.0Includes: PROPHYLAXIS for venous thrombosis, systemic embolization; TREATMENT for venous thrombosis and/or pulmonary embolus. HIGH RISK: Target INR is 2.5-3.5 for patients wiht mechanical heart valves. Performing Organization Address City/State/Zipcode Phone Number [facility] [place] [phone] [place] [address] CENTER after 02/22/2018 Advance Directives For more information, please contact:[address] [phone] Code Status Date Activated Date Inactivated Comments Full Code 02/12/2019 5:35 AM 02/15/2019 12:35 PM This code status was determined by: Patient
--- NOTE | 2019-02-23 12:39 | RAD REPORT ---
EXAM DESCRIPTION: CT - Abdomen Pelvis W Contrast - 02/23/2019 12:16 pm CLINICAL HISTORY: Abdominal pain Patient details history of self removal of an abdominal drain tube COMPARISON: CT study February 11, 2019 TECHNIQUE: Biphasic, helical CT imaging of the abdomen and pelvis was performed following 100 ml non -ionic IV contrast. No oral contrast administered. All CT scans are performed using dose optimization technique as appropriate and may include automated exposure control or mA/KV adjustment according to patient size. FINDINGS: No suspicious findings in the lung bases. The liver, spleen, and pancreas show no suspicious findings. Gallbladder is contracted. No suspicion for acute gallbladder process. No biliary tree dilatation. Symmetric renal function is seen with no hydronephrosis or suspicious renal mass. No pyelonephritis o r acute parenchymal process. No bladder abnormalities. No adrenal abnormalities. No gastric dilatation gastric wall thickening. No dilated small bowel loops. No dilated colon. There is moderate stool volume throughout the colon. A pigtail drainage catheter is in place in the left mid abdomen. This was the site of a 4 centimeter or larger abscess collection seen on the February 12 study. There is a small remnant collection 1.9 x 1.8 cm in size. The pigtail is along the lateral margin of this collection. Medial margin of this collec tion show soft tissue that extends towards the small bowel loops. No communication with the colon see n. Patient has little if any diverticulosis. The appearance of the collection and proximity to small bowel raises a question that the original inj ury and source for the abscess was small bowel rather than diverticulitis. No oral contrast was admin istered. No evaluation can be made of leakage of small bowel content. There is no free air or free fl uid present. No other collections seen. No mass or bulky lymphadenopathy. Fat extends into the origin of the right inguinal canal. No suspicious bony findings. IMPRESSION: A pigtail drainage catheter is in place. Pigtail is still present within the peritoneal cavity. Drainage catheter was placed within a 4- 5 centimeter abscess in the left mid abdomen detailed on the February 12 study. A remnant 19 millimeter x 18 millimeter collection remains. The pigtail is at the lat eral margin of this collection. The very extensive edematous/ inflammatory stranding seen in the peritoneal fat has resolved. There is soft tissue along the medial margin of the remnant collection that tracks to the small bowel rather than the colon. This raises the possibility that the original injury was related to a small b owel perforation rather than diverticulitis. Currently no active infectious/ inflammatory stranding is seen in the peritoneal fat and there is no free air, free fluid or new abscess collection.
--- NOTE | 2019-02-23 13:21 | ER ---
Nurse's Notes [facility] Name: Sanjay Cerda Age: 38 yrs Sex: Male : 1980 Arrival Date: 02/23/2019 Time: 10:36 Bed 5 Private MD: None, None Diagnosis: Encounter for change or removal of drains Presentation: 02/23 10:49 Presenting complaint: Presenting complaint: Patient states: "I had fluid in my abdomen hb so they put in this drain, today the tubing got pulled out some, it is supposed to come out today anyway." Pt does not recall hospital where drain was placed. 10:50 Transition of care: patient was not received from another setting of care. Onset of hb symptoms was February 23, 2019. Risk Assessment: Do you want to hurt yourself or someone else? Patient reports no desire to harm self or others. Care prior to arrival: None. 10:50 Method Of Arrival: Ambulatory hb 10:50 Acuity: LEIDA 3 hb 11:09 Initial Sepsis Screen: Does the patient meet any 2 criteria? No. Patient's initial hj sepsis screen is negative. Does the patient have a suspected source of infection? No. Patient's initial sepsis screen is negative. Triage Assessment: 11:08 General: Appears in no apparent distress. uncomfortable, Behavior is calm, cooperative, hj appropriate for age. Pain: Complains of pain in abdomen. Historical: - Allergies: 10:52 No Known Allergies; hb - PSHx: 10:52 None; hb - Immunization history:: Adult Immunizations up to date. - Social history:: Smoking status: Patient uses tobacco products, smokes one pack cigarettes per day. - Ebola Screening: : No symptoms or risks identified at this time. Screenin:08 Abuse screen: Denies threats or abuse. Denies injuries from another. Nutritional hj screening: No deficits noted. Tuberculosis screening: No symptoms or risk factors identified. Fall Risk None identified. Assessment: 10:52 General: Appears in no apparent distress. uncomfortable, Behavior is calm, cooperative, hj appropriate for age. Pain: Complains of pain in abdomen. Neuro: Level of Consciousness is awake, alert, obeys commands, Oriented to person, place, time, situation, Appropriate for age. Cardiovascular: Capillary refill < 3 seconds Patient's skin is warm and dry. Respiratory: Airway is patent Respiratory effort is even, unlabored, Respiratory pattern is regular, symmetrical, GI: No signs and/or symptoms were reported involving the gastrointestinal system. : No signs and/or symptoms were reported regarding the genitourinary system. EENT: No signs and/or symptoms were reported regarding the EENT system. Derm: No signs and/or symptoms reported regarding the dermatologic system. Musculoskeletal: No signs and/or symptoms reported regarding the musculoskeletal system. 11:30 Reassessment: Patient and/or family updated on plan of care and expected duration. Pain hj level reassessed. Patient is alert, oriented x 3, equal unlabored respirations, skin warm/dry/pink. awaiting lab result and CT;. 12:17 Reassessment: Patient and/or family updated on plan of care and expected duration. Pain hj level reassessed. Patient is alert, oriented x 3, equal unlabored respirations, skin warm/dry/pink. awaiting POC;. Vital Signs: 10:51 BP 114 / 76; Pulse 94; Resp 16; Temp 97.1; Pulse Ox 100% on R/A; Weight 70.31 kg; hb Height 5 ft. 11 in. (180.34 cm); Pain 0/10; 12:18 BP 112 / 75; Pulse 90; Resp 18; Pulse Ox 100% on R/A; hj 13:36 BP 114 / 70; Pulse 85; Resp 18; Pulse Ox 100% on R/A; hj 10:51 Body Mass Index 21.62 (70.31 kg, 180.34 cm) hb ED Course: 10:36 Patient arrived in ED. dl4 10:38 None, None is Private Physician. dl4 10:51 Triage completed. hb 10:51 Arm band placed on. hb 10:54 So Durham FNP-C is PHCP. kb 10:54 Alli Fajardo MD is Attending Physician. kb 11:07 Zaki Jackson, NARENDRA is Primary Nurse. hj 11:09 Patient has correct armband on for positive identification. Bed in low position. Call light in reach. Side rails up X 1. 11:37 Creatinine for Radiology Sent. hj 11:37 Initial lab(s) drawn, by me, sent to lab. Inserted saline lock: 20 gauge in right hj antecubital area, using aseptic technique. Blood collected. 12:19 CT Abd/Pelvis - IV Contrast Only In Process Unspecified. EDMS 13:35 No provider procedures requiring assistance completed. IV discontinued, intact, hj bleeding controlled, No redness/swelling at site. Pressure dressing applied. Administered Medications: 13:00 Drug: morphine 4 mg Route: IVP; Site: right antecubital; hj 13:12 Follow up: Response: No adverse reaction hj 13:00 Drug: Zofran 4 mg Route: IVP; Site: right antecubital; hj 13:12 Follow up: Response: No adverse reaction Outcome: 13:20 Discharge ordered by . julita 13:35 Discharged to home ambulatory. hj 13:35 Condition: stable 13:35 Discharge instructions given to patient, Instructed on discharge instructions, follow up and referral plans. Demonstrated understanding of instructions, follow-up care. 13:36 Patient left the ED. Signatures: Dispatcher [employer] EDPR So Durham, JONATHAN GIBSON-Zaki Jeffery RN RN June Fuentes RN RN hb Luna, David dl4 Corrections: (The following items were deleted from the chart) 10:51 10:49 Presenting complaint: hb hb
--- NOTE | 2019-02-23 13:21 | EDPHYS ---
Physician Documentation [facility] Name: Sanjay Cerda Age: 38 yrs Sex: Male : 1980 Arrival Date: 02/23/2019 Time: 10:36 Bed 5 Private MD: None, None ED Physician Alli Fajardo HPI: 02/23 12:02 This 38 yrs old Male presents to ER via Ambulatory with complaints of Post Op kb Injury. 12:02 Here for drain removal. Onset: The symptoms/episode began/occurred today. The patient kb has not experienced similar symptoms in the past. The patient has been recently seen at the [facility] Emergency Department. Pt reports he was told to come here today for removal of drain. States he accidentally popped the stitch out at [facility] today so he came now instead of tonight. Does not know who placed it or where. Denies abd pain, n/v/d, fever. Eating chips and drinking a monster during exam. . Past record reveals pt was transferred to [facility] on 02/12/19. Historical: - Allergies: 10:52 No Known Allergies; hb - PSHx: 10:52 None; hb - Immunization history:: Adult Immunizations up to date. - Social history:: Smoking status: Patient uses tobacco products, smokes one pack cigarettes per day. - Ebola Screening: : No symptoms or risks identified at this time. ROS: 12:00 Constitutional: Negative for fever, chills, and weight loss, Cardiovascular: Negative kb for chest pain, palpitations, and edema, Respiratory: Negative for shortness of breath, cough, wheezing, and pleuritic chest pain, Abdomen/GI: Negative for abdominal pain, nausea, vomiting, diarrhea, and constipation, Back: Negative for injury and pain, MS/Extremity: Negative for injury and deformity, Skin: Negative for injury, rash, and discoloration, Neuro: Negative for headache, weakness, numbness, tingling, and seizure. Exam: 12:00 Constitutional: This is a well developed, well nourished patient who is awake, alert, kb and in no acute distress. Head/Face: Normocephalic, atraumatic. Neck: Trachea midline, no thyromegaly or masses palpated, and no cervical lymphadenopathy. Supple, full range of motion without nuchal rigidity, or vertebral point tenderness. No Meningismus. Chest/axilla: Normal chest wall appearance and motion. Nontender with no deformity. No lesions are appreciated. Cardiovascular: Regular rate and rhythm with a normal S1 and S2. No gallops, murmurs, or rubs. Normal PMI, no JVD. No pulse deficits. Respiratory: Lungs have equal breath sounds bilaterally, clear to auscultation and percussion. No rales, rhonchi or wheezes noted. No increased work of breathing, no retractions or nasal flaring. Back: No spinal tenderness. No costovertebral tenderness. Full range of motion. Skin: Warm, dry with normal turgor. Normal color with no rashes, no lesions, and no evidence of cellulitis. MS/ Extremity: Pulses equal, no cyanosis. Neurovascular intact. Full, normal range of motion. Neuro: Awake and alert, GCS 15, oriented to person, place, time, and situation. Cranial nerves II-XII grossly intact. Motor strength 5/5 in all extremities. Sensory grossly intact. Cerebellar exam normal. Normal gait. 12:00 Abdomen/GI: Inspection: Small drain attached to PATRICIA suction noted to LLQ, Bowel sounds: Palpation: abdomen is soft and non-tender, in all quadrants. Vital Signs: 10:51 BP 114 / 76; Pulse 94; Resp 16; Temp 97.1; Pulse Ox 100% on R/A; Weight 70.31 kg; hb Height 5 ft. 11 in. (180.34 cm); Pain 0/10; 12:18 BP 112 / 75; Pulse 90; Resp 18; Pulse Ox 100% on R/A; hj 13:36 BP 114 / 70; Pulse 85; Resp 18; Pulse Ox 100% on R/A; hj 10:51 Body Mass Index 21.62 (70.31 kg, 180.34 cm) hb MDM: 10:54 Patient medically screened. kb 11:13 Data reviewed: vital signs, nurses notes. Data interpreted: Pulse oximetry: on room air kb is 100 %. Interpretation: normal. ED course: Spoke with [facility]. marketing outreach coordinator read the notes to me. Pt was discharged on 02/15/19 and told that he needed to follow up in one week for removal of drain. Pt was told he could [facility] ([facility] Pt has a follow up appt at [facility] General Surgery on March 03, 2019 at 1430 ([address] [place] [address], [place], [place]. [phone] or [phone]). Pt will be reminded of follow up appt. . 11:57 ED course: Win MENDOZA and I both tried to remove drain. Resistence met after approx 2 kb inches removed. Will do CT scan to further investigate before attempting removal again. 13:00 ED course: Dr Owens came to assess drain, not familiar with this particular drain. kb Will call [facility] again to verify nothing else needs to be done prior to removal. . ED course: Discussed pt condition with Yasemin MENDOZA at [facility]. Recommends cutting blue tube that inserts into abd and then removing. States to make sure line is loose, drain is not on suction and the suture is cut. There should be nothing else holding tube in place. 13:18 Counseling: I had a detailed discussion with the patient and/or guardian regarding: the kb historical points, exam findings, and any diagnostic results supporting the discharge/admit diagnosis, radiology results, the need for outpatient follow up, a general surgeon, to return to the emergency department if symptoms worsen or persist or if there are any questions or concerns that arise at home. 13:18 ED course: Disconnected drain from collection system and used gentle constant pressure kb to remove tube. Tube removed intact. Pt reports it feels better now that drain is removed. Educated to keep follow up appt on March 03. 02/23 11:27 Order name: Creatinine for Radiology; Complete Time: 12:07 kb 02/23 11:27 Order name: CT Abd/Pelvis - IV Contrast Only; Complete Time: 12:48 kb Administered Medications: 13:00 Drug: morphine 4 mg Route: IVP; Site: right antecubital; hj 13:12 Follow up: Response: No adverse reaction hj 13:00 Drug: Zofran 4 mg Route: IVP; Site: right antecubital; hj 13:12 Follow up: Response: No adverse reaction hj Disposition: 17:19 Co-signature as Attending Physician, Alli Fajardo MD. rn Disposition: 02/23/19 13:20 Discharged to Home. Impression: Encounter for change or removal of drains. - Condition is Stable. - Discharge Instructions: Percutaneous Abscess Drain, Care After. - Medication Reconciliation Form, Thank You Letter, Antibiotic Education, Prescription Opioid Use form. - Follow up: Emergency Department; When: As needed; Reason: Worsening of condition. Follow up: Private Physician; When: 2 - 3 days; Reason: Recheck today's complaints, Continuance of care, Re-evaluation by your physician. - Notes: Keep your follow up appt with your surgeon. Appt scheduled for March 03, 2019 at 2:30PM at [facility] [address] [place] [address]. [phone] Signatures: Dispatcher [employer] EDMS Herminio So, TIRE RETREADER-C TIRE RETREADER-Ckb Alli Fajardo MD MD rn Joaquin, Henry, RN RN hj Baxter, Heather, RN RN Corrections: (The following items were deleted from the chart) 13:36 13:20 02/23/2019 13:20 Discharged to Home. Impression: Encounter for change or removal hj of drains. Condition is Stable. Forms are Medication Reconciliation Form, Thank You Letter, Antibiotic Education, Prescription Opioid Use. Follow up: Emergency Department; When: As needed; Reason: Worsening of condition. Follow up: Private Physician; When: 2 - 3 days; Reason: Recheck today's complaints, Continuance of care, Re-evaluation by your physician. kb
[2019-02-23] MEDS ORDERED: MORPHINE 4 MG/ML SYR ONE (13:22)
[2019-02-23] MEDS ORDERED: ONDANSETRON 4 MG/2 ML VIAL ONE (13:23)
== END 2019-02-23 13:36 | disposition home or self-care (01) ==
LOC: ER 10:34
DX: Z48.03 Encounter for change or removal of drains (principal); F17.210 Nicotine dependence, cigarettes, uncomplicated
CPT/HCPCS: 36415; 74177; 96374; 96375; 99284; J2405; Q9967

== ENCOUNTER 2020-01-13 14:13 | Emergency (ER) | payer SELFPAY ==
--- OUTSIDE RECORDS SUMMARY | 2020-01-13 14:14 | XMS REPORT | Clinical Summary ---
:1980 Author Organization [facility] Address [address] [place] [address] Care Team Providers Name Role Phone Unavailable Primary Care Provider Unavailable Allergies No Known Allergies Medications Medication Sig Dispensed Refills Start Date End Date Status amoxicillin-clavulan Take 1 tablet 22 tablet 0 02/15/201901/31 Discontinued ate (AUGMENTIN) by mouth 875-125 mg per every 12 tablet (twelve) hours for 11 days. metroNIDAZOLE Take 1 tablet 33 tablet 0 02/15/2019 02/15/2019 Discontinued (FLAGYL) 500 MG (500 mg tablet total) by mouth 3 (three) times daily for 11 days. amoxicillin-clavulan Take 1 tablet 22 tablet 0 02/15/201902/01 ate (AUGMENTIN) by mouth 875-125 mg per every 12 tablet (twelve) hours for 11 days. metroNIDAZOLE Take 1 tablet 33 tablet 0 02/15/2019 02/26/2019 (FLAGYL) 500 MG (500 mg tablet total) by mouth 3 (three) times daily for 11 days. Active Problems Problem Noted Date Abscess of abdominal cavity 02/14/2019 Diverticulitis 02/12/2019 Encounters Date Type Specialty Care Team Description 02/12/2019 - Hospital General Internal Lyle Gill Diver ticulitis; 02/15/2019 Encounter Medicine MD Naseem Diverticulitis of large intestine with a bscess without bleeding Essie Wadsworth MD Nalam, Roopa Lata, MD 02/12/2019 Travel after 01/12/2019 Social History Tobacco Use Types Packs/Day Years [...] kg (154 lb 6.4 oz) 02/12/2019 5:25 A M CDT Height 180.3 cm (5' 11") 02/12/2019 5:25 AM CDT Body Mass Index 21.53 02/12/2019 5:25 AM CDT Plan of Treatment Not on file Procedures Procedure Name Priority Date/Time Associated Comments Diagnosis CBC W/PLT COUNT & Routine 02/15/2019 6:16 Result s for this AUTO DIFFERENTIAL AM CDT procedure are in the results section. CBC W/PLT COUNT & Routine 02/15/2019 6:16 Result s for this AUTO DIFFERENTIAL AM CDT procedure are in the results section. MAGNESIUM Routine 02/15/2019 5:46 Results for this AM CDT procedure are i n the results section. BASIC METABOLIC PANEL Routine 02/15/2019 5:46 Re sults for this (7) AM CDT procedure are i n the results section. CBC W/PLT COUNT & Routine 02/14/2019 4:52 Result s for this AUTO DIFFERENTIAL AM CDT procedure are in the results section. MAGNESIUM Routine 02/14/2019 4:52 Results for this AM CDT procedure are i n the results section. BASIC METABOLIC PANEL Routine 02/14/2019 4:52 Re sults for this (7) AM CDT procedure are i n the results section. CBC W/PLT COUNT & Routine 02/14/2019 4:52 Result s for this AUTO DIFFERENTIAL AM CDT procedure are in the results section. CBC W/PLT COUNT & Routine 02/13/2019 4:54 Result s for this AUTO DIFFERENTIAL AM CDT procedure are in the results section. MAGNESIUM Routine 02/13/2019 4:54 Results for this AM CDT procedure are i n the results section. BASIC METABOLIC PANEL Routine 02/13/2019 4:54 Re sults for this (7) AM CDT procedure are i n the results section. CBC W/PLT COUNT & Routine 02/13/2019 4:54 Result s for this AUTO DIFFERENTIAL AM CDT procedure are in the results section. CT DRAINAGE PELVIS TJ 02/12/2019 4:00 Resul ts for this PM CDT procedure are i n the results section. CT ABDOMEN/PELVIS STAT 02/12/2019 1:53 Result s for this WITHOUT IV CONTRAST PM CDT procedur e are in the results section. CBC W/PLT COUNT & Routine 02/12/2019 6:17 Result s for this AUTO DIFFERENTIAL AM CDT procedure are in the results section. PROTHROMBIN TIME/INR Routine 02/12/2019 6:17 Res ults for this AM CDT procedure are i n the results section. CBC W/PLT COUNT & Routine 02/12/2019 6:17 Result s for this AUTO DIFFERENTIAL AM CDT procedure are in the results section. BASIC METABOLIC PANEL Routine 02/12/2019 6:17 Re sults for this (7) AM CDT procedure are i n the results section. after 01/12/2019 Results CBC with platelet count + automated diff (02/15/2019 6:16 AM CDT)Only the most recent of4 resultswithin the time period is included. WBC 6.3 3.5 - 10.5 K/L [facility] RBC 4.53 (L) 4.63 - 6.08 M/L [facility] Hemoglobin 13.1 (L) 13.7 - 17.5 GM/DL [facility] Hematocrit 40.1 40.1 - 51.0 % [facility] MCV 88.5 79.0 - 92.2 fL [facility] MCH 28.9 25.7 - 32.2 pg [facility] MCHC 32.7 32.3 - 36.5 GM/DL [facility] RDW 13.0 11.6 - 14.4 % [facility] Platelets 288 150 - 450 K/CU MM [facility] MPV 9.9 9.4 - 12.4 fL [facility] nRBC 0 0 - 0 /100 WBC [facility] % Neutros 55 % [facility] % Lymphs 29 % [facility] % Monos 12 % [facility] % Eos 3 % [facility] % Baso 1 % [facility] # Neutros 3.42 1.78 - 5.38 K/L [facility] # Lymphs 1.83 1.32 - 3.57 K/L [facility] # Monos 0.76 0.30 - 0.82 K/L [facility] # Eos 0.19 0.04 - 0.54 K/L [facility] # Baso 0.03 0.01 - 0.08 K/L [facility] Immature Granulocytes-Relative 1 0 - 1 % C [facility] Specimen Blood Performing Organization Address City/State/Zipcode Phone Number [address] [address] CENTER Magnesium (02/15/2019 5:46 AM CDT)Only the most recent of3 resultswithin the time period is included. Magnesium 1.8 1.6 - 2.6 mg/dL [facility] Specimen Blood Performing Organization Address City/[facility]/Zipcode Phone Number [address] [address] [place] Basic Metabolic Panel (02/15/2019 5:46 AM CDT)Only the most recent of4 results within the time period is included. Sodium 143 136 - 145 meq/L [facility] Potassium 3.9 3.5 - 5.1 meq/L [facility] Chloride 108 (H) 98 - 107 meq/L [facility] CO2 27 22 - 29 meq/L [facility] BUN 7 7 - 21 mg/dL [facility] Creatinine 0.75 0.57 - 1.25 mg/dL [facility] Glucose 80 70 - 105 mg/dL [facility] Calcium 8.8 8.4 - 10.2 mg/dL [facility] EGFR 115Comment: ESTIMATED GFR IS mL/min/1.73 sq m [facility] NOT ACCURATE [facility] [place] CLEARANCE IN PREDICTING GLOMERULAR FILTRATION RATE. ESTIMATED GFR IS NOT APPLICABLE FOR DIALYSIS PATIENTS. Specimen Blood Performing Organization Address City/State/Zipcode Phone Number [facility] [address] [place] [address] drainage pelvis (02/12/2019 4:00 PM CDT) Specimen Narrative Performed At FINAL REPORT [employer] CT-guided drainage catheter placement da danny 02/12/2019 Name of practitioner performing procedur e: Mickey Herrera M.D. Names of program services assistant: None Procedure: Drainage catheter placement i nto the left lower quadrant abdominal abscess Preprocedure diagnosis: Abdominal abscess Postprocedure diagnosis: Abdominal abscess Specimens removed: 3 cc of purulent fluid removed. An 8 Pranay [employer] drainage catheter placed. Estimated blood loss: None Complication: None Conscious sedation: 1 mg Versed and [address] Mickey Herrera was responsible for the m oderate sedation. Total sedation time: 20 minutes Anesthesia: 1% Xylocaine local anesthesi a. Graft/Implants: None Technique: This exam was performed accor ding to our departmental dose-optimization program, which include s automated exposure control, adjustment of the mA and/or kV according to patient size and/or use of interactive reconstruction technique. After obtained informed consent, CT-guid ed drainage catheter placement into the left lower quadrant a bdominal abscess was performed under usual sterile technique. After placing introducer needle and guidewire, the tract was dila danny with a 6 and 8 [place] dilators. An 8 [place] drainage catheter was placed. The drainage catheter was left in place, secured to s kin with suture, and connected to bulb suction. Patient tolerated procedure well. Impression: Successful CT-guided drainag e catheter placement into the left lower abdominal abscess. Signed: Mickey Herrera MD Report Verified Date/Time:02/12/2019 16:25:23 Reading Location: [facility] B1 C013Y CT Body R eading Room Procedure Note Interface, External Ris In - 02/12/2019 4:27 PM CDT FINAL REPORT CT-guided drainage catheter placement da danny 02/12/2019 Name of practitioner performing procedur e: Mickey Herrera M.D. Names of program services assistant: None Procedure: Drainage catheter placement i nto the left lower quadrant abdominal abscess Preprocedure diagnosis: Abdominal abscess Postprocedure diagnosis: Abdominal abscess Specimens removed: 3 cc of purulent fluid removed. An 8 Pranay nch drainage catheter placed. Estimated blood loss: None Complication: None Conscious sedation: 1 mg Versed and [address] Mickey Herrera was responsible for the m oderate sedation. Total sedation time: 20 minutes Anesthesia: 1% Xylocaine local anesthesi a. Graft/Implants: None Technique: This exam was performed accor ding to our departmental dose-optimization program, which include s automated exposure control, adjustment of the mA and/or kV according to patient size and/or use of interactive reconstruction technique. After obtained informed consent, CT-guid ed drainage catheter placement into the left lower quadrant a bdominal abscess was performed under usual sterile technique. After placing introducer needle and guidewire, the tract was dila danny with a 6 and 8 [place] dilators. An 8 [place] drainage catheter was placed. The drainage catheter was left in place, secured to s kin with suture, and connected to bulb suction. Patient tolerated procedure well. Impression: Successful CT-guided drainag e catheter placement into the left lower abdominal abscess. Signed: Mickey Herrera MD Report Verified Date/Time: 02/12/2019 1 6:25:23 Reading Location: [facility] B1 C013Y CT Body R eading Room Performing Organization Address City/State/Zipcode Phone Number [employer] CT abdomen/pelvis without iv contrast (02/12/2019 1:53 PM CDT) Specimen Narrative Performed At FINAL REPORT [employer] ABDOMINAL AND PELVIS CT DATED 02/12/2019 CLINICAL INFORMATION:Abd pain, fever , abscess suspected TECHNIQUE:Axial images of the abdome n and pelvis were obtained from diaphragm to the pubic symphysis with GI contrast. This exam was performed according to our departmental dose-optimization program, which include s automated exposure control, adjustment of the mA and/or kV according to patient size and/or use of interactive reconstruction technique. COMMENT: Liver and spleen are normal in size without focal abnormality.Gallbladder is distended with vicarious excretion. No biliary dilatation is noted. Pancreas and adrenals are unremarkable. Both kidneys are normal in size. No hydr onephrosis, hydroureter, urolithiasis is seen. Wall thickening is seen in the segment o f the small bowel in the left lower quadrant abdomen. Wall thickening is also noted in the distal descending and proximal sigmoid colon. I nflammatory changes are seen in the distal descending mesocolon and a djacent to a segment of the small bowel. A 2.8 x 4.2 cm air-fluid co llection is seen in the left mid abdomen. Prostate is normal in size. The urinary bladder is contracted. No mass, adenopathy or ascites is presen t. IMPRESSION: 1. Wall thickening in a segment of the s mall bowel in the left lower quadrant abdomen and in the distal desce nding and proximal sigmoid mesocolon. 2. Extraluminal air-fluid collection in the left lower quadrant abdomen suggestive of abscess. Signed: Mickey Herrera MD Report Verified Date/Time:02/12/2019 14:59:46 Reading Location: [facility] B1 C013Y CT Body R [facility] Room Procedure Note Interface, External Ris In - 02/12/2019 3:02 PM CDT FINAL REPORT ABDOMINAL AND PELVIS CT DATED 02/12/2019 CLINICAL INFORMATION: Abd pain, fever, abscess suspected TECHNIQUE: Axial images of the abdomen and pelvis were obtained from diaphragm to the pubic symphysis with GI contrast. This exam was performed according to our departmental dose-optimization program, which include s automated exposure control, adjustment of the mA and/or kV according to patient size and/or use of interactive reconstruction technique. COMMENT: Liver and spleen are normal in size without focal abnormality. Gallbladder is distended w ith vicarious excretion. No biliary dilatation is noted. Pancreas and adrenals are unremarkable. Both kidneys are normal in size. No hydr onephrosis, hydroureter, urolithiasis is seen. Wall thickening is seen in the segment o f the small bowel in the left lower quadrant abdomen. Wall thickening is also noted in the distal descending and proximal sigmoid colon. I nflammatory changes are seen in the distal descending mesocolon and a djacent to a segment of the small bowel. A 2.8 x 4.2 cm air-fluid co llection is seen in the left mid abdomen. Prostate is normal in size. The urinary bladder is contracted. No mass, adenopathy or ascites is presen t. IMPRESSION: 1. Wall thickening in a segment of the s mall bowel in the left lower quadrant abdomen and in the distal desce nding and proximal sigmoid mesocolon. 2. Extraluminal air-fluid collection in the left lower quadrant abdomen suggestive of abscess. Signed: Mickey Herrera MD Report Verified Date/Time: 02/12/2019 1 4:59:46 Reading Location: [facility] C013Y CT Body R [facility] Room Performing Organization Address City/State/Zipcode Phone Number [employer] Prothrombin time/INR (02/12/2019 6:17 AM CDT) Protime 16.0 (H) 11.9 - 14.2 seconds [facility] INR 1.3 <=5.9 [facility] Specimen Blood Narrative Performed At Effective 12/29/2018: PT Reference Range [facility] Change New: 11.9-14.2Previous: 11.7-14.7 RECOMMENDED COUMADIN/WARFARIN INR THERAPY RANGES STANDARD DOSE: 2.0-3.0Includes: PROPHYLAXIS for venous thrombosis, systemic embolization; TREATMENT for venous thrombosis and/or pulmonary embolus. HIGH RISK: Target INR is 2.5-3.5 for patients wiht mechanical heart valves. Performing Organization Address City/State/Zipcode Phone Number [facility] [address] [place] [address] CENTER after 01/12/2019 Advance Directives For more information, please contact:[address] [phone] Code Status Date Activated Date Inactivated Comments Full Code 02/12/2019 5:35 AM 02/15/2019 12:35 PM This code status was determined by: Patient
--- OUTSIDE RECORDS SUMMARY | 2020-01-13 14:15 | XMS REPORT | Continuity of Care Document ---
:1980 Author Organization [facility] t Address [address] [place] [address] Care Team Providers Name Role Phone Noe Mendez MD Attending Clinician Ermelinda CALDERON Attending Clinician Donya Mccann MD Attending Clinician NOE MENDEZ Attending Clinician Unavailable NOE MENDEZ Admitting Clinician Unavailable Problems Condition Condition Condition Status Onset Resolution Last Treating Co mments Source Name Details Category Date Date Treatment Clinician Date Abscess of Abscess of Disease Active [facility] abdominal abdominal 7-15 [facility] - cavity cavity 00:00: Medical 00 [place] Diverticul Diverticul Disease Active 2019-[address] itis itis 7-13 [facility] Allergies, Adverse Reactions, Alerts This patient has no known allergies or adverse reactions. Social History Social Habit Start Date Stop Date Quantity Comments Source Sex Assigned At [facility] Medications Ordered Filled Start Stop Current Ordering Indication Dosage Frequency Signature Comments Components Source Medication Medication Date Date Medication? Clinician (SIG) Name Name amoxicillin 2018- 2019- No 1{tbl} Take [address] -clavulanat 7-16 07-27 tablet by Abi woodward 00:00: 23:59 mouth Medical (AUGMENTIN) 00 :00 every 12 Cent er 875-125 mg (twelve) per tablet hours for 11 days. metroNIDAZO 2019- No 500mg [id number] Take [address] [facility] (FLAGYL) 7-16 07-27 [id number] tablet [facility] - 500 MG 00:00: 23:59 3D (500 mg Medical tablet 00 :00 total) by Center mouth 3 (three) times daily for 11 days. amoxicillin 2018- No 1{tbl} Take [address] -clavulanat 02-15 tablet by Abi kes - e 00:00: 00:00 mouth Medical (AUGMENTIN) 00 :00 every 12 Cent er 875-125 mg (twelve) per tablet hours for 11 days. metroNIDAZO 2018- No 500mg [id number] Take [address] [facility] [address] [facility] (FLAGYL) 02-15 [id number] tablet [facility] - 500 MG 00:00: 00:00 3D (500 mg Medical tablet 00 :00 total) by Center mouth 3 (three) times daily for 11 days. Vital Signs Vital Name Observation Time Observation Value Comments Source Systolic blood 2019-02-15 08:00:00 107 mm[Hg] [facility] Diastolic blood 2019-02-15 08:00:00 70 mm[Hg] [facility] Heart rate 2019-02-15 08:00:00 66 /min [facility] Body temperature 2019-02-15 08:00:00 36.22 Bernadette [facility] Respiratory rate 2019-02-15 08:00:00 18 /min [facility] Oxygen saturation in 2019-02-15 08:00:00 97 /min [facility] Arterial blood by Medical Ce nter Pulse oximetry Body height 2019-02-12 05:25:00 180.3 cm [facility] Body weight Measured 2019-02-12 05:25:00 70.035 kg [facility] BMI 2019-02-12 05:25:00 21.53 kg/m2 [facility] Procedures Procedure Date / Time Performed Performing Clinician Sourc e CBC W/PLT COUNT & AUTO 2019-02-15 06:16:00 Edwardo Jacinto [facility] BASIC METABOLIC PANEL 2019-02-15 05:46:00 Essie Wadsworth [facility] (7) [facility] MAGNESIUM 2019-02-15 05:46:00 [facility] BASIC METABOLIC PANEL 2019-02-14 04:52:00 [facility] () [facility] MAGNESIUM 2019-02-14 04:52:00 [facility] CBC W/PLT COUNT & AUTO 2019-02-14 04:52:00 [facility] BASIC METABOLIC PANEL 2019-02-13 04:54:00 [facility] (7) [facility] MAGNESIUM 2019-02-13 04:54:00 [facility] CBC W/PLT COUNT & AUTO 2019-02-13 04:54:[address] [facility] [address] DRAINAGE PELVIS 2019-02-12 16:00:00 Kodi Gross [facility] CT ABDOMEN/PELVIS 2019-02-12 13:53:00 Benjamin Mojica [facility] WITHOUT IV CONTRAST Medical Cent er BASIC METABOLIC PANEL 2019-02-12 06:17[facility] () [facility] PROTHROMBIN TIME/INR 2019-02-12 06:17[facility] CBC W/PLT COUNT & AUTO 2019-02-12 06:17:00 [facility] Results Test Description Test Time Test Comments Results Result Comments Source Basic Metabolic Panel 2019-02-15 08:11:00 Test Item Value Reference Range Interpretation Comme nts Sodium (test code = 2951-2) 143 meq/L 136-145 Potassium (test code = 2823-3) 3.9 meq/L 3.5-5.1 Chloride (test code = 2075-0) 108 meq/L 98-107 H CO2 (test code = 2027-9) 27 meq/L 22-29 BUN (test code = 3094-0) 7 mg/dL 7-21 Creatinine (test code = 0.75 mg/dL 0.57-1.25 2160-0) Glucose (test code = 2345-7) 80 mg/dL 70-105 Calcium (test code = 38377-0) 8.8 mg/dL 8.4-10.2 EGFR (test code = 57877-0) 115 mL/min/1.73 sq m ESTIMATED GFR IS NOT ACCURATE CRE ATININE CLEARANCE IN [place] EDICTING GLOMERULAR FILT RATION RATE. ESTIMATED GFR IS NOT APPLICABLE FOR DIALYSIS PATIEN TS. Lab Interpretation (test code Abnormal = 45775-2) [facility]00 Test Item Value Reference Range Interpretation Comments Magnesium (test code = 76470-7) 1.8 mg/dL 1.6-2.6 Lab Interpretation (test code = Normal 09786-0) [facility] 08:11:00 Test Item Value Reference Range Interpretation Comments MAGNESIUM (BEAKER) (test code = 1.8 mg/dL 1.6-2.6 627) BASIC METABOLIC [id number] 08:11:00 Test Item Value Reference Range Interpretation Comments SODIUM (BEAKER) 143 meq/L 136-145 (test code = 381) POTASSIUM (BEAKER) 3.9 meq/L 3.5-5.1 (test code = 379) CHLORIDE (BEAKER) 108 meq/L 98-107 H (test code = 382) CO2 (BEAKER) (test 27 meq/L 22-29 code = 355) BLOOD UREA NITROGEN 7 mg/dL 7-21 (BEAKER) (test code = 354) CREATININE (BEAKER) 0.75 mg/dL 0.57-1.25 (test code = 358) GLUCOSE RANDOM 80 mg/dL 70-105 (BEAKER) (test code = 652) CALCIUM (BEAKER) 8.8 mg/dL 8.4-10.2 (test code = 697) EGFR (BEAKER) (test 115 mL/min/1.73 ESTIM ATED GFR IS code = 1092) sq m NOT ACCURATE CREATININE CLEARANCE IN PREDICTING GLOMERULAR FILTRATION RATE . ESTIMATED GFR I S NOT APPLICABLE FOR DIALYSIS PATIEN TS. CBC with platelet count + automated [id number] 06:40:00 Test Item Value Reference Range Interpretation Comments WBC (test code = 6690-2) 6.3 3.5- 10.5 K/L RBC (test code = 789-8) 4.53 4.63- 6.08 M/L L MCHC (test code = 786-4) 32.7 32.3- 36.5 GM/DL L Hematocrit (test code = 4544-3) 40.1 % 40.1-51 MCV (test code = 787-2) 88.5 fL 79-92.2 MCH (test code = 785-6) 28.9 pg 25.7-32.2 RDW (test code = 788-0) 13.0 % 11.6-14.4 Platelets (test code = 777-3) 288 150- 450 K/CU MM MPV (test code = 49934-6) 9.9 fL 9.4-12.4 nRBC (test code = 413) 0 0- 0 /100 WBC % Neutros (test code = 429) 55 % % Lymphs (test code = 430) 29 % % Monos (test code = 431) 12 % % Eos (test code = 432) 3 % % Baso (test code = 437) 1 % # Neutros (test code = 670) 3.42 1.78- 5.38 K/L # Lymphs (test code = 414) 1.83 1.32- 3.57 K/L # Monos (test code = 415) 0.76 0.30- 0.82 K/L # Eos (test code = 416) 0.19 0.04- 0.54 K/L # Baso (test code = 417) 0.03 0.01- 0.08 K/L Immature Granulocytes-Relative 1 % 0-1 (test code = 2801) Lab Interpretation (test code = Abnormal 38241-1) [facility] W/PLT COUNT & AUTO [id number] 06:40:00 Test Item Value Reference Range Interpretation Comments WHITE BLOOD CELL COUNT (BEAKER) 6.3 K/ L 3.5-10.5 (test code = 775) RED BLOOD CELL COUNT (BEAKER) 4.53 M/ L 4.63-6.08 L (test code = 761) HEMOGLOBIN (BEAKER) (test code = 13.1 GM/DL 13.7-17.5 L 410) HEMATOCRIT (BEAKER) (test code = 40.1 % 40.1-51.0 411) MEAN CORPUSCULAR VOLUME (BEAKER) 88.5 fL 79.0-92.2 (test code = 753) MEAN CORPUSCULAR HEMOGLOBIN 28.9 pg 25.7-32.2 (BEAKER) (test code = 751) MEAN CORPUSCULAR HEMOGLOBIN CONC 32.7 GM/DL 32.3-36.5 (BEAKER) (test code = 752) RED CELL DISTRIBUTION WIDTH 13.0 % 11.6-14.4 (BEAKER) (test code = 412) PLATELET COUNT (BEAKER) (test 288 K/CU MM 150-450 code = 756) MEAN PLATELET VOLUME (BEAKER) 9.9 fL 9.4-12.4 (test code = 754) NUCLEATED RED BLOOD CELLS 0 /100 WBC 0-0 (BEAKER) (test code = 413) NEUTROPHILS RELATIVE PERCENT 55 % (BEAKER) (test code = 429) LYMPHOCYTES RELATIVE PERCENT 29 % (BEAKER) (test code = 430) MONOCYTES RELATIVE PERCENT 12 % (BEAKER) (test code = 431) EOSINOPHILS RELATIVE PERCENT 3 % (BEAKER) (test code = 432) BASOPHILS RELATIVE PERCENT 1 % (BEAKER) (test code = 437) NEUTROPHILS ABSOLUTE COUNT 3.42 K/ L 1.78-5.38 (BEAKER) (test code = 670) LYMPHOCYTES ABSOLUTE COUNT 1.83 K/ L 1.32-3.57 (BEAKER) (test code = 414) MONOCYTES ABSOLUTE COUNT (BEAKER) 0.76 K/ L 0.30-0.82 (test code = 415) EOSINOPHILS ABSOLUTE COUNT 0.19 K/ L 0.04-0.54 (BEAKER) (test code = 416) BASOPHILS ABSOLUTE COUNT (BEAKER) 0.03 K/ L 0.01-0.08 (test code = 417) IMMATURE GRANULOCYTES-RELATIVE 1 % 0-1 PERCENT (BEAKER) (test code = 2801) [id number] 06:55:00 Test Item Value Reference Range Interpretation Comments MAGNESIUM (BEAKER) (test code = 1.8 mg/dL 1.6-2.6 627) BASIC METABOLIC [id number] 06:55:00 Test Item Value Reference Range Interpretation Comments SODIUM (BEAKER) 136 meq/L 136-145 (test code = 381) POTASSIUM (BEAKER) 3.3 meq/L 3.5-5.1 L (test code = 379) CHLORIDE (BEAKER) 103 meq/L 98-107 (test code = 382) CO2 (BEAKER) (test 22 meq/L 22-29 code = 355) BLOOD UREA NITROGEN 9 mg/dL 7-21 (BEAKER) (test code = 354) CREATININE (BEAKER) 0.70 mg/dL 0.57-1.25 (test code = 358) GLUCOSE RANDOM 67 mg/dL 70-105 L (BEAKER) (test code = 652) CALCIUM (BEAKER) 8.5 mg/dL 8.4-10.2 (test code = 697) EGFR (BEAKER) (test 125 mL/min/1.73 ESTIM ATED GFR IS code = 1092) sq m NOT ACCURATE CREATININE CLEARANCE IN PREDICTING GLOMERULAR FILTRATION RATE . ESTIMATED GFR I S NOT APPLICABLE FOR DIALYSIS PATIEN TS. CBC W/PLT COUNT & AUTO [id number] 05:44:00 Test Item Value Reference Range Interpretation Comments WHITE BLOOD CELL COUNT (BEAKER) 8.7 K/ L 3.5-10.5 (test code = 775) RED BLOOD CELL COUNT (BEAKER) 4.40 M/ L 4.63-6.08 L (test code = 761) HEMOGLOBIN (BEAKER) (test code = 13.0 GM/DL 13.7-17.5 L 410) HEMATOCRIT (BEAKER) (test code = 39.4 % 40.1-51.0 L 411) MEAN CORPUSCULAR VOLUME (BEAKER) 89.5 fL 79.0-92.2 (test code = 753) MEAN CORPUSCULAR HEMOGLOBIN 29.5 pg 25.7-32.2 (BEAKER) (test code = 751) MEAN CORPUSCULAR HEMOGLOBIN CONC 33.0 GM/DL 32.3-36.5 (BEAKER) (test code = 752) RED CELL DISTRIBUTION WIDTH 12.8 % 11.6-14.4 (BEAKER) (test code = 412) PLATELET COUNT (BEAKER) (test 254 K/CU MM 150-450 code = 756) MEAN PLATELET VOLUME (BEAKER) 9.9 fL 9.4-12.4 (test code = 754) NUCLEATED RED BLOOD CELLS 0 /100 WBC 0-0 (BEAKER) (test code = 413) NEUTROPHILS RELATIVE PERCENT 71 % (BEAKER) (test code = 429) LYMPHOCYTES RELATIVE PERCENT 17 % (BEAKER) (test code = 430) MONOCYTES RELATIVE PERCENT 9 % (BEAKER) (test code = 431) EOSINOPHILS RELATIVE PERCENT 1 % (BEAKER) (test code = 432) BASOPHILS RELATIVE PERCENT 1 % (BEAKER) (test code = 437) NEUTROPHILS ABSOLUTE COUNT 6.22 K/ L 1.78-5.38 H (BEAKER) (test code = 670) LYMPHOCYTES ABSOLUTE COUNT 1.49 K/ L 1.32-3.57 (BEAKER) (test code = 414) MONOCYTES ABSOLUTE COUNT (BEAKER) 0.80 K/ L 0.30-0.82 (test code = 415) EOSINOPHILS ABSOLUTE COUNT 0.11 K/ L 0.04-0.54 (BEAKER) (test code = 416) BASOPHILS ABSOLUTE COUNT (BEAKER) 0.04 K/ L 0.01-0.08 (test code = 417) IMMATURE GRANULOCYTES-RELATIVE 1 % 0-1 PERCENT (BEAKER) (test code = 2801) [id number] 07:28:00 Test Item Value Reference Range Interpretation Comments MAGNESIUM (BEAKER) (test code = 1.7 mg/dL 1.6-2.6 627) BASIC METABOLIC [id number] 07:28:00 Test Item Value Reference Range Interpretation Comments SODIUM (BEAKER) 137 meq/L 136-145 (test code = 381) POTASSIUM (BEAKER) 3.9 meq/L 3.5-5.1 (test code = 379) CHLORIDE (BEAKER) 102 meq/L 98-107 (test code = 382) CO2 (BEAKER) (test 26 meq/L 22-29 code = 355) BLOOD UREA NITROGEN 7 mg/dL 7-21 (BEAKER) (test code = 354) CREATININE (BEAKER) 0.78 mg/dL 0.57-1.25 (test code = 358) GLUCOSE RANDOM 71 mg/dL 70-105 (BEAKER) (test code = 652) CALCIUM (BEAKER) 9.1 mg/dL 8.4-10.2 (test code = 697) EGFR (BEAKER) (test 110 mL/min/1.73 ESTIM ATED GFR IS code = 1092) sq m NOT ACCURATE CREATININE CLEARANCE IN PREDICTING GLOMERULAR FILTRATION RATE . ESTIMATED GFR I S NOT APPLICABLE FOR DIALYSIS PATIEN TS. CBC W/PLT COUNT & AUTO [id number] 07:04:00 Test Item Value Reference Range Interpretation Comments WHITE BLOOD CELL COUNT (BEAKER) 16.1 K/ L 3.5-10.5 H (test code = 775) RED BLOOD CELL COUNT (BEAKER) 4.80 M/ L 4.63-6.08 (test code = 761) HEMOGLOBIN (BEAKER) (test code = 14.2 GM/DL 13.7-17.5 410) HEMATOCRIT (BEAKER) (test code = 43.6 % 40.1-51.0 411) MEAN CORPUSCULAR VOLUME (BEAKER) 90.8 fL 79.0-92.2 (test code = 753) MEAN CORPUSCULAR HEMOGLOBIN 29.6 pg 25.7-32.2 (BEAKER) (test code = 751) MEAN CORPUSCULAR HEMOGLOBIN CONC 32.6 GM/DL 32.3-36.5 (BEAKER) (test code = 752) RED CELL DISTRIBUTION WIDTH 13.1 % 11.6-14.4 (BEAKER) (test code = 412) PLATELET COUNT (BEAKER) (test 244 K/CU MM 150-450 code = 756) MEAN PLATELET VOLUME (BEAKER) 10.3 fL 9.4-12.4 (test code = 754) NUCLEATED RED BLOOD CELLS 0 /100 WBC 0-0 (BEAKER) (test code = 413) NEUTROPHILS RELATIVE PERCENT 81 % (BEAKER) (test code = 429) LYMPHOCYTES RELATIVE PERCENT 11 % (BEAKER) (test code = 430) MONOCYTES RELATIVE PERCENT 7 % (BEAKER) (test code = 431) EOSINOPHILS RELATIVE PERCENT 0 % (BEAKER) (test code = 432) BASOPHILS RELATIVE PERCENT 0 % (BEAKER) (test code = 437) NEUTROPHILS ABSOLUTE COUNT 13.06 K/ L 1.78-5.38 H (BEAKER) (test code = 670) LYMPHOCYTES ABSOLUTE COUNT 1.74 K/ L 1.32-3.57 (BEAKER) (test code = 414) MONOCYTES ABSOLUTE COUNT (BEAKER) 1.20 K/ L 0.30-0.82 H (test code = 415) EOSINOPHILS ABSOLUTE COUNT 0.03 K/ L 0.04-0.54 L (BEAKER) (test code = 416) BASOPHILS ABSOLUTE COUNT (BEAKER) 0.04 K/ L 0.01-0.08 (test code = 417) IMMATURE GRANULOCYTES-RELATIVE 0 % 0-1 PERCENT (BEAKER) (test code = 2801) CT, DRAINAGE, [id number] 16:25:00Reason for exam:->perisigmoidal abscess in patient with diverticulitisFINAL REPORT CT- guided drainage catheter placement dated 02/12/2019 Name of practitioner performing procedure:Mickey Herrera M.D. Names of tmd teacher assistant:None Procedure: Drainage catheter placement into the left lower quadrant abdominal abscess Preprocedure diagnosis:Abdominal abscess Postprocedure diagnosis:Abdominal abscess Specimens removed:3 cc of purulent fluid removed. An 8 Kazakh drainage catheter placed. Estimated blood loss:None Complication:None Conscious sedation: 1 mg Versed and [address] Mickey Herrera was responsible for the moderate sedation. Total sedation time:20 minutes Anesthesia: 1% Xylocaine local anesthesia. Graft/Implants:None Technique: This exam was performed according to our departmental dose-optimization program, which includes automated exposure co ntrol, adjustment of the mA and/or kV according to patient size and/or use of interactive reconstruction technique. After obtained informed consent, CT-guided drainage catheter placement into the left lower quadrant abdominal abscess was performed under usual sterile technique. After placing introducer needle and guidewire, the tract was dilated with a 6 and 8 Kazakh dilators. An 8 Kazakh drainage catheter was placed. The drainage catheter was left in place, secured to skin with suture, and connected to bulb suction. Patient tolerated procedure well. Impression: Successful CT-guided drainage catheter placement into the left lower abdominal abscess. Signed: Mickey Herrera MDReport Verified Date/Time: 02/12/2019 16:25:23 Reading Location: [facility] B1 C013Y CT Body Reading Room CT drainage [id number] 16:25:00Interface, External Ris In - 02/12/2019 4:[address]-guided drainage catheter placement dated 02/12/2019 Name of practitioner performing procedure:Mickey Herrera M.D.Names of tmd teacher assistant:None Procedure: Drainage catheter placement into the left lower quadrant abdominal abscess Preprocedure diagnosis:Abdominal abscess Postprocedure diagnosis:Abdominal abscess Specimens removed:3 cc of purulent fluid removed. An 8 Kazakh drainage catheter placed. Estimated blood loss:None Complication:None Conscious sedation: 1 mg Versed and [address] Mickey Herrera was responsible for the moderate sedation. Total sedation time: 20 minutes Anesthesia: 1% Xylocaine local anesthesia. Graft/Implants:None [...] was dilated with a 6 and 8 Kazakh dilators. An 8 Kazakh drainage catheter was placed. The drainage catheter was leftin place, secured to skin with suture, and connected to bulb suction. Patient tolerated procedure well. Impression: Successful CT- guided drainage catheter placement into the left lower abdominal abscess. Signed: Mickey Herrera MDReport Verified Date/Time: 02/12/2019 16:25:23 Reading Location: [address] [facility] 14:59:00FINAL REPORT ABDOMINAL AND PELVIS CT DATED [...] focal abnormality. Gallbladder is distended with vicarious exc retion. No biliary dilatation is noted. Pancreas and [...] the distal descending and proximal sigmoid mesocolon.2. Extraluminalair-fluid collection in the left lower quadrant abdomen suggestive of abscess. Signed: Mickey Herrera MDReport Verified Date/Time: 02/12/2019 14:59:46 Reading Location: [address] Body Reading Room CT abdomen/pelvis without iv [id number] 14:59:00Interface, External Ris In - 02/12/2019 3:02 PM CDTFINAL REPORT ABDOMINAL AND PELVIS CT DATED 02/12/2019 [...] lower quadrant abdomen and in the distal descen ding and proximal sigmoid mesocolon.2. Extraluminal air-fluid collection in the left lower quadrant abdomen suggestive of abscess. Signed: Mickey Herrera MDReport Verified Date/Time: 02/12/2019 14:59:46 Reading Location: [facility] B1 C013Y CT Body Reading Room Electronically signed by: MICKEY HERRERA M.D.on 02/12/2019 02:59 [facility] METABOLIC [id number] 07:13:00 Test Item Value Reference Range Interpretation Comments SODIUM (BEAKER) 137 meq/L 136-145 (test code = 381) POTASSIUM (BEAKER) 4.2 meq/L 3.5-5.1 (test code = 379) CHLORIDE (BEAKER) 105 meq/L 98-107 (test code = 382) CO2 (BEAKER) (test 27 meq/L 22-29 code = 355) BLOOD UREA NITROGEN 7 mg/dL 7-21 (BEAKER) (test code = 354) CREATININE (BEAKER) 0.94 mg/dL 0.57-1.25 (test code = 358) GLUCOSE RANDOM 90 mg/dL 70-105 (BEAKER) (test code = 652) CALCIUM (BEAKER) 8.7 mg/dL 8.4-10.2 (test code = 697) EGFR (BEAKER) (test 89 mL/min/1.73 ESTIMA COLLIN GFR IS code = 1092) sq m NOT ACCURATE CREATININE CLEARANCE IN PREDICTING GLOMERULAR FILTRATION RATE . ESTIMATED GFR I S NOT APPLICABLE FOR DIALYSIS PATIEN TS. CBC W/PLT COUNT & AUTO [id number] 07:08:00 Test Item Value Reference Range Interpretation Comments WHITE BLOOD CELL COUNT (BEAKER) 19.0 K/ L 3.5-10.5 H (test code = 775) RED BLOOD CELL COUNT (BEAKER) 4.92 M/ L 4.63-6.08 (test code = 761) HEMOGLOBIN (BEAKER) (test code = 14.4 GM/DL 13.7-17.5 410) HEMATOCRIT (BEAKER) (test code = 44.6 % 40.1-51.0 411) MEAN CORPUSCULAR VOLUME (BEAKER) 90.7 fL 79.0-92.2 (test code = 753) MEAN CORPUSCULAR HEMOGLOBIN 29.3 pg 25.7-32.2 (BEAKER) (test code = 751) MEAN CORPUSCULAR HEMOGLOBIN CONC 32.3 GM/DL 32.3-36.5 (BEAKER) (test code = 752) RED CELL DISTRIBUTION WIDTH 13.1 % 11.6-14.4 (BEAKER) (test code = 412) PLATELET COUNT (BEAKER) (test 234 K/CU MM 150-450 code = 756) MEAN PLATELET VOLUME (BEAKER) 9.5 fL 9.4-12.4 (test code = 754) NUCLEATED RED BLOOD CELLS 0 /100 WBC 0-0 (BEAKER) (test code = 413) NEUTROPHILS RELATIVE PERCENT 80 % (BEAKER) (test code = 429) LYMPHOCYTES RELATIVE PERCENT 11 % (BEAKER) (test code = 430) MONOCYTES RELATIVE PERCENT 8 % (BEAKER) (test code = 431) EOSINOPHILS RELATIVE PERCENT 0 % (BEAKER) (test code = 432) BASOPHILS RELATIVE PERCENT 0 % (BEAKER) (test code = 437) NEUTROPHILS ABSOLUTE COUNT 15.13 K/ L 1.78-5.38 H (BEAKER) (test code = 670) LYMPHOCYTES ABSOLUTE COUNT 2.16 K/ L 1.32-3.57 (BEAKER) (test code = 414) MONOCYTES ABSOLUTE COUNT (BEAKER) 1.48 K/ L 0.30-0.82 H (test code = 415) EOSINOPHILS ABSOLUTE COUNT 0.01 K/ L 0.04-0.54 L (BEAKER) (test code = 416) BASOPHILS ABSOLUTE COUNT (BEAKER) 0.05 K/ L 0.01-0.08 (test code = 417) IMMATURE GRANULOCYTES-RELATIVE 1 % 0-1 PERCENT (BEAKER) (test code = 2801) Prothrombin time/[id number] 06:54:00 Test Item Value Reference Range Interpretation Comments Protime (test code = 16.0 11.9- 14.2 H 5902-2) seconds INR (test code = 1.3 <=5.9 6301-6) RILEY (test code = RILEY) Effective 12/29/2018: PT Reference Range ChangeNew: 11.9-14.2 Previous: 11.7-14.7 RECOMMENDED COUMADIN/WARFARIN INR THERAPY RANGESSTANDARD DOSE: 2.0-3.0 Includes: PROPHYLAXIS for venous thrombosis, systemic embolization; TREATMENT for venous thrombosis and/or pulmonary embolus.HIGH RISK: Target INR is 2.5-3.5 for patients wiht mechanical heart valves. Lab Interpretation Abnormal (test code = 90545-2) [facility][id number] 06:54:00 Test Item Value Reference Range Interpretation Comments PROTIME (BEAKER) (test code = 16.0 seconds 11.9-14.2 H 759) INR (BEAKER) (test code = 370) 1.3 <=5.9 Effective 12/29/2018: PT Reference Range ChangeNew: 11.9-14.2 Previous: 11.7- 14.7RECOMMENDED COUMADIN/WARFARIN INR THERAPY RANGESSTANDARD DOSE: 2.0-3.0 Includes: PROPHYLAXIS for venous thrombosis, systemic embolization; TREATMENT for venous thrombosis and/or pulmonary embolus.HIGH RISK: Target INR is2.5-3.5 for patients wiht mechanical heart valves.
[2020-01-13 14:47] LABS: Absolute Lymphocytes (CBC) 2.1 K/uL (0.7-4.9); Basophils % 0.8 % (0-1.3); Hematocrit 44.5 % (39.6-49.0); MPV 8.7 fL (7.6-11.3); RBC Red Blood Cell Count 5.05 M/uL (4.33-5.43)
[2020-01-13] MEDS ORDERED: NA CHLORIDE 0.9% 1,000 ML ONE (14:50)
[2020-01-13 15:03] LABS: Potassium 3.7 mmol/L (3.5-5.1)
--- NOTE | 2020-01-13 16:01 | RAD REPORT ---
EXAM DESCRIPTION: CT - Abdomen Pelvis W Contrast - 01/13/2020 3:39 pm CLINICAL HISTORY: ABD PAIN COMPARISON: Abdomen Pelvis W Contrast dated 02/23/2019; Abdomen Pelvis W Contrast dated 02/11/2019 TECHNIQUE: Biphasic, helical CT imaging of the abdomen and pelvis was performed following 100 ml non -ionic IV contrast. No oral contrast given. All CT scans are performed using dose optimization technique as appropriate and may include automated exposure control or mA/KV adjustment according to patient size. FINDINGS: No suspicious findings in the lung bases. The liver, spleen, and pancreas show no suspicious findings. Gallbladder and biliary tree are also wi thout suspicious finding. Symmetric renal function is seen with no hydronephrosis or suspicious renal mass. No pyelonephritis o r acute parenchymal process. No bladder abnormalities. No adrenal abnormalities. No gastric dilatation or wall thickening. No dilated small bowel loops. No dilated colon or colon wal l thickening identifiable. Patient has rare diverticulosis. Since the prior study the drainage cathet er has been removed. There is no residual or recurrent fluid collection in the left mid abdomen. No f ocal scarring changes are identifiable. No new fluid collections seen. No free air, free fluid or inf lammatory stranding. No hernia, mass or bulky lymphadenopathy. No suspicious bony findings. IMPRESSION: Contrast-enhanced CT abdomen and pelvis imaging shows no acute finding. No residual or recurrent abscess or fluid collection in the left mid abdomen.
--- NOTE | 2020-01-13 16:21 | ER ---
Nurse's Notes [facility] Name: Sanjay Cerda Age: 39 yrs Sex: Male : 1980 Arrival Date: 01/13/2020 Time: 14:14 Bed 8 Private MD: Diagnosis: Generalized abdominal pain-chronic Presentation: 01/12 14:17 Chief complaint: Patient states: L sided abdominal pain since 2008. It's been off and ca1 on, I have been here 5x. The last time, they put a tube on it to drain some fluids and sent me to [place]. Denies N/V/diarrhea. Coronavirus screen: Proceed with normal triage. Patient denies a cough. Patient denies shortness of breath or difficulty breathing. Patient denies measured and/or subjective temperature greater than 100.4F prior to today's visit. Patient denies travel on a cruise ship or to a country the [facility] currently lists as an affected area. Patient denies contact with known and/or suspected case of COVID-19. Ebola Screen: Patient negative for fever greater than or equal to 101.5 degrees Fahrenheit, and additional compatible Ebola Virus Disease symptoms Patient denies exposure to infectious person. Patient denies travel to an Ebola-affected area in the 21 days before illness onset. No symptoms or risks identified at this time. Initial Sepsis Screen: Does the patient meet any 2 criteria? No. Patient's initial sepsis screen is negative. Does the patient have a suspected source of infection? No. Patient's initial sepsis screen is negative. Risk Assessment: Do you want to hurt yourself or someone else? Patient reports no desire to harm self or others. Onset of symptoms was January 13, 2020. 14:17 Method Of Arrival: Ambulatory ca1 14:17 Acuity: LEIDA 3 ca1 Historical: - Allergies: 14:20 No Known Allergies; ca1 - Home Meds: 14:20 None [Active]; ca1 - PMHx: 14:20 None; ca1 - PSHx: 14:20 None; ca1 - Immunization history:: Adult Immunizations up to date. - Social history:: Smoking status: Patient reports the use of cigarette tobacco products, smokes one pack cigarettes per day. Screenin:46 Abuse screen: Denies threats or abuse. Denies injuries from another. Nutritional jl7 screening: No deficits noted. Tuberculosis screening: No symptoms or risk factors identified. Fall Risk IV access (20 points). Total Mcneil Fall Scale indicates No Risk (0-24 pts). Assessment: 14:46 General: Appears in no apparent distress. uncomfortable, Behavior is calm, cooperative. jl7 Pain: Complains of pain in left lower quadrant Pain currently is 6 out of 10 on a pain scale. Neuro: Level of Consciousness is awake, alert, obeys commands, Oriented to person, place, time, situation. Cardiovascular: Patient's skin is warm and dry. Respiratory: Airway is patent Respiratory effort is even, unlabored, Respiratory pattern is regular, symmetrical. GI: Abdomen is non-distended. Derm: Skin is pink, warm \T\ dry. 15:45 Reassessment: Patient appears in no apparent distress at this time. No changes from jl7 previously documented assessment. Patient and/or family updated on plan of care and expected duration. Pain level reassessed. Patient is alert, oriented x 3, equal unlabored respirations, skin warm/dry/pink. Vital Signs: 14:17 BP 121 / 67; Pulse 83; Resp 16 S; Temp 97.4(O); Pulse Ox 97% on R/A; Weight 70.31 kg ca1 (R); Height 5 ft. 11 in. (180.34 cm) (R); Pain 7/10; 14:46 BP 126 / 94; Pulse 75; Resp 16; Pulse Ox 97% ; Pain 6/10; jl7 15:45 BP 120 / 95; Pulse 74; Resp 16; Pulse Ox 100% ; jl7 14:17 Body Mass Index 21.62 (70.31 kg, 180.34 cm) ca1 ED Course: 14:14 Patient arrived in ED. ag5 14:15 So Durham FNP-C is PHCP. kb 14:15 Myke Garcia MD is Attending Physician. kb 14:20 Triage completed. ca1 14:20 Arm band placed on right wrist. ca1 14:29 Malik Holley, NARENDRA is Primary Nurse. jl7 14:46 Patient has correct armband on for positive identification. Bed in low position. Call 7 light in reach. Side rails up X 1. Pulse ox on. NIBP on. 14:46 Initial lab(s) drawn, by me, sent to lab. Inserted saline lock: 20 gauge in right jl7 forearm, using aseptic technique. Blood collected. 15:39 CT Abd/Pelvis - IV Contrast Only In Process Unspecified. EDMS 16:38 No provider procedures requiring assistance completed. IV discontinued, intact, jl7 bleeding controlled, No redness/swelling at site. Pressure dressing applied. Administered Medications: 14:43 Drug: NS 0.9% 1000 ml Route: IV; Rate: 1000 ml; Site: right forearm; jl7 16:00 Follow up: Response: No adverse reaction; IV Status: Completed infusion; IV Intake: jl7 1000ml 16:34 Drug: TORadol - Ketorolac 15 mg Route: IVP; Site: right forearm; jl7 16:37 Follow up: Response: Medication administered at discharge. jl7 Intake: 16:00 IV: 1000ml; Total: 1000ml. jl7 Outcome: 16:20 Discharge ordered by . kb 16:38 Discharged to home ambulatory. jl7 16:38 Condition: stable 16:38 Discharge instructions given to patient, Instructed on discharge instructions, follow up and referral plans. Demonstrated understanding of instructions, follow-up care. 16:38 Patient left the ED. jl7 Signatures: Dispatcher [employer] EDMS So Durham, OPEN HEARTH LABORER-C OPEN HEARTH LABORER-aMlik Perez RN RN jl7 Stacey Ambrose RN RN ca1 Kavin Paris ag5
--- NOTE | 2020-01-13 16:21 | EDPHYS ---
Physician Documentation [facility] Name: Sanjay Cerda Age: 39 yrs Sex: Male : 1980 Arrival Date: 01/13/2020 Time: 14:14 Bed 8 Private MD: ED Physician Myke Garcia HPI: 01/12 14:29 This 39 yrs old Male presents to ER via Ambulatory with complaints of kb Abdominal Pain. 14:29 The patient presents with abdominal pain in the left lower quadrant. Onset: The kb symptoms/episode began/occurred "2008, all day, everyday.". The symptoms do not radiate. Associated signs and symptoms: none. The symptoms are described as constant. Modifying factors: The symptoms are alleviated by nothing, the symptoms are aggravated by nothing. Severity of pain: At its worst the pain was moderate in the emergency department the pain is unchanged. The patient has experienced similar episodes in the past. The patient has not recently seen a physician. Pt reports LLQ pain that started earlier today, but states it started in 2008 and he has the pain all day everyday. Denies fever, n/v/d. Historical: - Allergies: 14:20 No Known Allergies; ca1 - Home Meds: 14:20 None [Active]; ca1 - PMHx: 14:20 None; ca1 - PSHx: 14:20 None; ca1 - Immunization history:: Adult Immunizations up to date. - Social history:: Smoking status: Patient reports the use of cigarette tobacco products, smokes one pack cigarettes per day. ROS: 14:29 Constitutional: Negative for fever, chills, and weight loss, Cardiovascular: Negative kb for chest pain, palpitations, and edema, Respiratory: Negative for shortness of breath, cough, wheezing, and pleuritic chest pain, Back: Negative for injury and pain, MS/Extremity: Negative for injury and deformity, Skin: Negative for injury, rash, and discoloration, Neuro: Negative for headache, weakness, numbness, tingling, and seizure. 14:29 Abdomen/GI: Positive for abdominal pain, Negative for nausea, vomiting, and diarrhea. Exam: 14:31 Constitutional: This is a well developed, well nourished patient who is awake, alert, kb and in no acute distress. Head/Face: Normocephalic, atraumatic. Chest/axilla: Normal chest wall appearance and motion. Nontender with no deformity. No lesions are appreciated. Cardiovascular: Regular rate and rhythm with a normal S1 and S2. No gallops, murmurs, or rubs. Normal PMI, no JVD. No pulse deficits. Respiratory: Lungs have equal breath sounds bilaterally, clear to auscultation and percussion. No rales, rhonchi or wheezes noted. No increased work of breathing, no retractions or nasal flaring. Back: No spinal tenderness. No costovertebral tenderness. Full range of motion. Skin: Warm, dry with normal turgor. Normal color with no rashes, no lesions, and no evidence of cellulitis. MS/ Extremity: Pulses equal, no cyanosis. Neurovascular intact. Full, normal range of motion. Neuro: Awake and alert, GCS 15, oriented to person, place, time, and situation. Cranial nerves II-XII grossly intact. Motor strength 5/5 in all extremities. Sensory grossly intact. Cerebellar exam normal. Normal gait. 14:31 Abdomen/GI: Inspection: abdomen appears normal, Bowel sounds: normal, in all quadrants, Palpation: soft, in all quadrants, mild abdominal tenderness, in the left lower quadrant. Vital Signs: 14:17 BP 121 / 67; Pulse 83; Resp 16 S; Temp 97.4(O); Pulse Ox 97% on R/A; Weight 70.31 kg ca1 (R); Height 5 ft. 11 in. (180.34 cm) (R); Pain 7/10; 14:46 BP 126 / 94; Pulse 75; Resp 16; Pulse Ox 97% ; Pain 6/10; jl7 15:45 BP 120 / 95; Pulse 74; Resp 16; Pulse Ox 100% ; jl7 14:17 Body Mass Index 21.62 (70.31 kg, 180.34 cm) ca1 MDM: 14:22 Patient medically screened. kb 14:29 Data reviewed: vital signs, nurses notes. Data interpreted: Pulse oximetry: on room air kb is 97 %. Interpretation: normal. 16:19 Counseling: I had a detailed discussion with the patient and/or guardian regarding: the kb historical points, exam findings, and any diagnostic results supporting the discharge/admit diagnosis, lab results, radiology results, the need for outpatient follow up, a family practitioner, a learning consultant, to return to the emergency department if symptoms worsen or persist or if there are any questions or concerns that arise at home. 01/12 14:23 Order name: CBC with Diff; Complete Time: 15:11 kb 01/12 14:23 Order name: Basic Metabolic Panel; Complete Time: 15:06 kb 01/12 14:23 Order name: IV Saline Lock; Complete Time: 14:44 kb 01/12 14:27 Order name: CT Abd/Pelvis - IV Contrast Only; Complete Time: 16:11 kb 01/12 14:23 Order name: Labs collected and sent; Complete Time: 14:44 kb Administered Medications: 14:43 Drug: NS 0.9% 1000 ml Route: IV; Rate: 1000 ml; Site: right forearm; 7 16:00 Follow up: Response: No adverse reaction; IV Status: Completed infusion; IV Intake: jl 1000ml 16:34 Drug: TORadol - Ketorolac 15 mg Route: IVP; Site: right forearm; 7 16:37 Follow up: Response: Medication administered at discharge. 7 Disposition: 18:47 Co-signature as Attending Physician, Myke Garcia MD. ma2 Disposition: 01/13/20 16:20 Discharged to Home. Impression: Generalized abdominal pain - chronic. - Condition is Stable. - Discharge Instructions: Abdominal Pain, Adult, [id number]. - Medication Reconciliation Form, Thank You Letter, Antibiotic Education, Prescription Opioid Use form. - Follow up: Emergency Department; When: As needed; Reason: Worsening of condition. Follow up: Private Physician; When: 2 - 3 days; Reason: Recheck today's complaints, Continuance of care, Re-evaluation by your physician. Signatures: Dispatcher [employer] EDNM So Durham FNP-C FNP-Ckb Leal, Jahala, RN RN jl7 Myke Garcia MD MD wa2 Stacey Ambrose RN RN ca1 Corrections: (The following items were deleted from the chart) 16:38 16:20 01/13/2020 16:20 Discharged to Home. Impression: Generalized abdominal pain - jl7 chronic. Condition is Stable. Forms are Medication Reconciliation Form, Thank You Letter, Antibiotic Education, Prescription Opioid Use. Follow up: Emergency Department; When: As needed; Reason: Worsening of condition. Follow up: Private Physician; When: 2 - 3 days; Reason: Recheck today's complaints, Continuance of care, Re-evaluation by your physician. kb
[2020-01-13] MEDS ORDERED: KETOROLAC 30 MG/ML INJ ONE (16:39)
[2020-01-13 16:51] VITALS: TEMP 97.4
[2020-01-13 16:54] VITALS: BP 120/95; O2SAT 100
== END 2020-01-13 16:38 | disposition home or self-care (01) ==
LOC: ER 14:13
DX: R10.84 Generalized abdominal pain (principal); F17.210 Nicotine dependence, cigarettes, uncomplicated
CPT/HCPCS: 36415; 74177; 80048; 85025; 96361; 96374; 99284; J7030; Q9967

== ENCOUNTER 2021-03-10 01:32 | Emergency (ER) | payer SELFPAY ==
--- OUTSIDE RECORDS SUMMARY | 2021-03-10 01:35 | XMS REPORT | Continuity of Care Document ---
:1980 Author Organization [facility] t Address [address] [place] [address] Care Team Providers Name Role Phone NOE MENDEZ Attending Clinician Unavailable NOE MENDEZ Admitting Clinician Unavailable Problems Condition Condition Condition Status Onset Resolution Last Treating Co mments Source Name Details Category Date Date Treatment Clinician Date Abscess of Abscess of Disease Active [address] abdominal abdominal 7-15 [facility] - cavity cavity 00:[facility]: Medical 00 [place] Diverticul Diverticul Disease Active 2018-[address] itis itis 7-13 [facility] - [facility]: Medical 00 [place] Allergies, Adverse Reactions, Alerts This patient has no known allergies or adverse reactions. Social History Social Habit Start Date Stop Date Quantity Comments Source Sex Assigned At [facility] [place] Medications This patient has no known medications. Procedures This patient has no known procedures. Plan of Care Planned Activity Planned Date Details Comments Source Future Scheduled 2020-04-[address] [facility] - Test 00:00:00 (#1) [code = [facility] INFLUENZA VACCINE (#1)] Future Scheduled [address] [facility] - Test 00:00:00 (procedure) [code = [facility] [id number]] Results Test Description Test Time Test Comments Results Result Comments Source MAGNESIUM 2019-02-15 08:11:00 Test Item Value Reference Range Interpretation Comme nts MAGNESIUM (BEAKER) (test code = 627) 1.8 mg/dL 1.6-2.6 BASIC METABOLIC [id number] 08:11:00 Test Item Value Reference Range Interpretation [...] PATIEN TS. CBC W/PLT COUNT & AUTO [id number] 06:40:00 Test Item Value Reference Range Interpretation [...] 0-1 PERCENT (BEAKER) (test code = 2801) [id number] 06:55:00 Test Item Value Reference Range Interpretation Comments MAGNESIUM (BEAKER) (test code = 1.8 mg/dL 1.6-2.6 627) BASIC METABOLIC [id number] 06:55:00 Test Item Value Reference Range Interpretation [...] PATIEN TS. CBC W/PLT COUNT & AUTO [id number] 05:44:00 Test Item Value Reference Range Interpretation [...] 0-1 PERCENT (BEAKER) (test code = 2801) [id number] 07:28:00 Test Item Value Reference Range Interpretation Comments MAGNESIUM (BEAKER) (test code = 1.7 mg/dL 1.6-2.6 627) BASIC METABOLIC [id number] 07:28:00 Test Item Value Reference Range Interpretation [...] PATIEN TS. CBC W/PLT COUNT & AUTO [id number] 07:04:00 Test Item Value Reference Range Interpretation [...] (BEAKER) (test code = 2801) CT, DRAINAGE, [id number] 16:25:00Reason for exam:->perisigmoidal abscess in patient with diverticulitisFINAL REPORT CT- guided drainage catheter placement dated 02/12/2019 Name of practitioner performing procedure:Mickey Herrera M.D. Names of branch assistant:None Procedure: Drainage catheter placement into the left lower quadrant abdominal abscess Preprocedure diagnosis:Abdominal abscess Postprocedure diagnosis:Abdominal abscess Specimens removed:3 cc of purulent fluid removed. An 8 [place] drainage catheter placed. Estimated blood loss:None Complication:None [...] was dilated with a 6 and 8 [place]uran dilators. An 8 [place] drainage catheter was placed. The drainage catheter was left in place, secured to skin with suture, and connected to bulb suction. Patient tolerated procedure well. Impression: Successful CT-guided drainage catheter placement into the left lower abdominal abscess. Signed: Mickey Herrera MDReport Verified Date/Time: 02/12/2019 16:25:23 Reading Location: [facility] B1 C013Y CT Body Reading Room CT, ABDOMEN 2019-02-12 14:59:00FINAL REPORT ABDOMINAL AND PELVIS [...] MDReport Verified Date/Time: 02/12/2019 14:59:46 Reading Location: [facility] B1 C013Y CT [facility] [id number] 07:13:00 Test Item Value Reference Range Interpretation [...] PATIEN TS. CBC W/PLT COUNT & AUTO [id number] 07:08:00 Test Item Value Reference Range Interpretation [...] 0-1 PERCENT (BEAKER) (test code = 2801) PROTHROMBIN [id number] 06:54:00 Test Item Value Reference Range Interpretation [...]
--- NOTE | 2021-03-10 03:24 | ER ---
Nurse's Notes [facility] Name: Sanjay Cerda Age: 40 yrs Sex: Male : 1980 Arrival Date: 03/10/2021 Time: 01:36 Bed Waiting Private MD: Diagnosis: ED Course: 03/10 01:36 Patient arrived in ED. bp1 03:24 Patient's name was called from ER lobby. No response. Unable to locate patient. Will bb disposition as left without being seen by a provider. Administered Medications: 02:39 CANCELLED (Physician Discretion): Ketorolac 15 mg IVP once bb 02:39 CANCELLED (Inappropriate at this time): HYDROcodone-acetaminophen 10 mg-325 mg 1 tabs bb PO once; RASS on ADMIN: Combtv4, Very Agttd3, Agttd2, Rstlss1, AlertClm0, Drwsy-1, Lt Sdtn-2, Mod Sdtn-3, Dp Sdtn-4, UnArsble-5 Outcome: 03:24 Patient left the ED. bb Signatures: Mary Felix RN RN bb Monse So bp1
== END 2021-03-10 03:24 | disposition left against medical advice (07) ==
LOC: ER 01:32
DX: Z02.9 Encounter for administrative examinations, unspecified (principal)

== ENCOUNTER 2025-04-21 23:00 | Emergency (ER) | payer OTHER, SELFPAY ==
[2025-04-21] MEDS ORDERED: LIDOCAINE 2% W/EPI 1:200,000 MPF 20 ML VIAL IM ONE (23:43)
[2025-04-21] MEDS ORDERED: TDAP (DIPHTH,PERTUSS(ACELL),TET VAC) 0.5 ML VIAL IMVAC ONE (23:44)
--- NOTE | 2025-04-22 01:00 | RAD REPORT ---
EXAM: CT Head and Cervical Spine Without Intravenous Contrast CLINICAL HISTORY: TRAUMA TECHNIQUE: Axial computed tomography images of the head/brain and cervical spine without intravenous contrast. Sagittal and coronal reformatted images were created and reviewed. This CT exam was performed using one or more of the following dose reduction techniques: automated exposure control, adjustmen t of the mA and/or kV according to patient size, and/or use of iterative reconstruction technique. COMPARISON: No relevant prior studies available. FINDINGS: Brain: Unremarkable. No hemorrhage. No significant white matter disease. No edema. Ventricles: Unremarkable. No ventriculomegaly. Bones: Bilateral nasal bone fractures which appear fairly well corticated suggesting remote trauma. Sinuses: Minimal bilateral maxillary sinus mucosal thickening. Mastoid air cells: Unremarkable as visualized. No mastoid effusion. Vertebrae: Minimal grade 1 retrolisthesis of C5 on C6 and C6 on C7. No acute fracture. Discs/spinal canal/neural foramina: Mild multilevel degenerative changes most pronounced at C2-C3 a nd C5-C6. No canal stenosis. Soft tissues: Left forehead/frontal scalp laceration. IMPRESSION: 1. No acute intracranial or extra-axial abnormality. 2. No acute cervical spine injury. 3. Other findings as above. Electronically signed by: Sanaz Hodge MD 04/22/2025 12:56 AM CDT Due to temporary technical issues with the PACS/[employer] reporting system, reports are being franine d by the in-house radiologist without review as a courtesy to ensure prompt reporting the interpreting radiologist is fully responsible for the content of the report. Transcribed Date/Time: 04/22/2025 12:59 AM
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
== END 2025-04-22 02:13 | disposition home or self-care (01) ==
LOC: ER 23:10
DX: S01.91XA Laceration without foreign body of unspecified part of head, initial encounter (principal); Y08.89XA Assault by other specified means, initial encounter; Y92.009 Unspecified place in unspecified non-institutional (private) residence as the place of occurrence of the external cause; Z23 Encounter for immunization; F17.210 Nicotine dependence, cigarettes, uncomplicated
CPT/HCPCS: 12032; 70450; 72125; 90715; 96372; 99285

== ENCOUNTER 2025-04-29 17:55 | Emergency (ER) | payer OTHER ==
--- NOTE | 2025-04-29 18:07 | ER ---
Nurse's Notes [facility] Name: Sanjay Cerda Age: 44 yrs Sex: Male : 1980 Arrival Date: 04/29/2025 Time: 17:55 Bed IW1 Private MD: Diagnosis: Encounter for removal of sutures Presentation: 04/29 18:02 Chief complaint: Patient states: here for lt forehead suture removal. reports placed x dd2 6 days ago. Coronavirus screen: At this time, the client does not indicate any symptoms associated with coronavirus-19. Ebola Screen: No symptoms or risks identified at this time. Initial Sepsis Screen: Does the patient meet any 2 criteria? No. Patient's initial sepsis screen is negative. Does the patient have a suspected source of infection? No. Patient's initial sepsis screen is negative. Risk Assessment: Do you want to hurt yourself or someone else? Patient reports no desire to harm self or others. Onset of symptoms was April 23, 2025. 18:02 Method Of Arrival: Ambulatory dd2 18:02 Acuity: LEIDA 4 dd2 Triage Assessment: 18:04 General: Appears in no apparent distress. comfortable, Behavior is calm, cooperative, dd2 appropriate for age. Pain: Denies pain. EENT: No deficits noted. No signs and/or symptoms were reported regarding the EENT system. Neuro: No deficits noted. Cardiovascular: No deficits noted. Respiratory: No deficits noted. GI: No deficits noted. No signs and/or symptoms were reported involving the gastrointestinal system. : No deficits noted. No signs and/or symptoms were reported regarding the genitourinary system. Derm: sutures to lt forehead. healed laceration repair Denies pain. Musculoskeletal: No deficits noted. No signs and/or symptoms reported regarding the musculoskeletal system. Historical: - Allergies: 18:04 No Known Allergies; dd2 - PMHx: 18:04 None; dd2 - PSHx: 18:04 None; dd2 - Immunization history:: Adult Immunizations up to date. - Infectious Disease History:: Denies. - Social history:: Smoking status: Reported history of juuling and/or vaping. Screenin:06 [facility] ED Fall Risk Assessment (Adult) History of falling in the last 3 months, dd2 including since admission No falls in past 3 months (0 pts) Confusion or Disorientation No (0 pts) Intoxicated or Sedated No (0 pts) Impaired Gait No (0 pts) Mobility Assist Device Used No (0 pt) Altered Elimination No (0 pt) Score/Fall Risk Level 0 - 2 = Low Risk Oriented to surroundings, Maintained a safe environment, Educated pt \T\ family on fall prevention, incl call for assistance when getting out of bed. Abuse screen: Denies threats or abuse. Denies injuries from another. Nutritional screening: No deficits noted. Tuberculosis screening: No symptoms or risk factors identified. Assessment: 18:06 Reassessment: SEE TRIAGE ASSESSMENT FOR FULL ASSESSMENT. dd2 Vital Signs: 18:02 BP 143 / 85; Pulse 83; Resp 16; Temp 97.8; Pulse Ox 98% on R/A; Pain 0/10; dd2 18:02 Pain Scale: Adult dd2 [place] Coma Score: 18:06 Eye Response: spontaneous(4). Motor Response: obeys commands(6). Verbal Response: dd2 oriented(5). Total: 15. ED Course: 17:57 Patient arrived in ED. ts1 17:59 Galileo Rea FNP-C [facility]. dr5 18:00 Alli Fajardo MD is Attending Physician. dr5 18:04 Triage completed. dd2 18:04 Arm band placed on right wrist. dd2 18:06 Patient has correct armband on for positive identification. Provided Education on: D/C dd2 EDUCATION. 18:06 No provider procedures requiring assistance completed. Patient did not have IV access dd2 during this emergency room visit. Removal of Removed sutures from left side of forehead. Administered Medications: No medications were administered Medication: 18:06 VIS not applicable for this client. dd2 Outcome: 18:06 Discharge ordered by . dr5 18:09 Patient left the ED. dd2 Signatures: Clarisa Brandon PAS PAS ts1 RICARDO SHAIKH RN RN dd2 Galileo Rea FNP-C TANK SYSTEMS MAINTAINER-Cdr5
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
[2025-04-29 18:23] VITALS: BP 143/85; TEMP 97.8; O2SAT 98
== END 2025-04-29 18:09 | disposition home or self-care (01) ==
LOC: ER 17:55
DX: Z48.02 Encounter for removal of sutures (principal)
CPT/HCPCS: 99281